=== PATIENT | male | born 1945 | race Caucasian/White ===

== ENCOUNTER → 2016-03-15 | Outpatient (CLI) | payer MEDICARE, OTHER ==
[~2016-03-15] MED LIST: ALBUTEROL SULFATE 0.083% NEB 2.5 MG/3 ML AMPUL NEB ONE
--- NOTE | 2016-03-17 09:24 | PULMONARY FUNCTION TEST ---
DATE OF SERVICE: 03/15/2016 THE VITAL CAPACITY IS MODERATELY DECREASED. THE EXPIRATORY FLOW RATES ARE SEVERELY DECREASED. THE FEV1/VC IS 60%, PREDICTED: 78% LUNG VOLUMES BY NITROGEN WASH OUT METHOD SHOW: TLC IS 73% OF PREDICTED FRC IS 90% OF PREDICTED RV IS 98% OF PREDICTED THE DLCO IS 17.2, 73% OF PREDICTED. THE RV/TLC RATIO IS 52% PREDICTED 41% AFTER BRONCHODILATOR, EXPIRATORY FLOW RATES SHOW NO SIGNIFICANT CHANGE. IMPRESSION: GOOD PATIENT EFFORT. SLIGHT RESTRICTIVE AND MODERATE OBSTRUCTIVE DEFECT. DIFFUSING CAPACITY IS SLIGHTLY DECREASED. CC: AUTUMN CARBONE MD > MIRAD
== END ==
LOC: RT 09:08
PROVIDERS: ATTEND Internal Medicine
DX: J44.9 Chronic obstructive pulmonary disease, unspecified (principal)
CPT/HCPCS: 94729; 94727; 94060; 94640; 94760; A9270

== ENCOUNTER → 2016-03-27 | Outpatient (CLI) | payer MEDICARE, OTHER ==
[2016-03-27 13:43] LABS: BLOOD UREA NITROGEN 14 mg/dL (7-20); CREATININE RESULT 0.94 mg/dL (0.52-1.25)
[2016-03-29 09:09] LABS: PROSTATE SPECIFIC ANTIGEN 0.6 ng/mL (0.0-4.0); PSA % FREE 11.7 % (.); PSA FREE 0.07 ng/mL
== END ==
LOC: OD 12:27
PROVIDERS: ATTEND Urology
DX: C61 Malignant neoplasm of prostate (principal)
CPT/HCPCS: 36415; 82565; 84153; 84154; 84520

== ENCOUNTER 2016-05-19 06:25 | Day surgery (SDC) | payer MEDICARE, OTHER ==
[2016-05-19] MEDS ORDERED: FENTANYL CITRATE INJ/PF 100 MCG/2 ML AMPUL ONE (07:18)
[2016-05-19] MEDS ORDERED: MIDAZOLAM 2 MG/2 ML INJ ONE (07:18)
[2016-05-19] MEDS ORDERED: LIDOCAINE 2% INJ (20 MG/ML) 20 ML MDV ONE (07:19)
[2016-05-19] MEDS ORDERED: ONDANSETRON HCL INJ/PF 4 MG/2 ML SDV ONE (07:19)
[2016-05-19] MEDS ORDERED: PROPOFOL INJ 200 MG/20 ML VIAL IV ONE (07:19)
[2016-05-19] MEDS ORDERED: BUPIVACAINE HCL 0.75% INJ/PF (7.5 MG/1 ML) 10 ML SDV ONE (07:28)
[2016-05-19] MEDS ORDERED: LIDOCAINE 2%/EPINEPHRINE INJ 20 ML VIAL ONE (07:28)
[2016-05-19] MEDS ORDERED: TETRACAINE HCL 0.5% OPH SOLN 2 ML ONE (07:29)
[2016-05-19] MEDS ORDERED: POVIDONE-IODINE 5% OPH PREP SOLN 30 ML ONE (07:35)
[2016-05-19] MEDS: THROMBIN (BOVINE) TOPICAL 5000 UNIT VIAL ONE ×2 (08:05)
[2016-05-19] MEDS: NEO/POLYMYX B SULF/DEXAMETH OPH OINTMENT 3.5 GM ONE ×2 (08:59)
--- NOTE | 2016-05-19 09:23 | [facility]IC[facility] DISCHARGE SUMMARY E ---
[facility] Discharge Summary NAME: SHERLYN MACIAS AGE: 71Y ADMITTED: 05/19/2016 DISCHARGED: 05/19/2016 DISCHARGE SUMMARY: This is a 71-year-old male who underwent bilateral upper lid blepharoplasty. DIAGNOSES: Dermatochalasis of both lids. The patient had excessive skin hanging down over vision, blocking his superior visual field. He is to use ice 15 minutes of every hour for the first 6 hours followed by 4 times a day. He is to use his Maxitrol ointment on his lids twice a day and he is to follow up with me for suture removal in 1 week and call sooner with any extra bleeding or swelling. The patient was on Plavix which he discontinued for 10 days prior to surgery, and he can continue to use that now. DICTATING PHYSICIAN: JUANA MORALES M.D. [id number] PHY#: [id number] ID: [id number] JOB#: [id number] ACCT: [id number] cc:JUANA MORALES M.D. >
--- NOTE | 2016-05-19 09:24 | [facility] OPERATIVE REPORT E ---
[facility] Operative Report NAME: SHERLYN MACIAS AGE: 71Y DATE OF SURGERY: 05/19/2016 ROOM: PREOPERATIVE DIAGNOSIS: Dermatochalasis of the bilateral upper lids. POSTOPERATIVE DIAGNOSIS: Dermatochalasis of the bilateral upper lids. PROCEDURE: Bilateral upper lid blepharoplasty, functional. SURGEON: JUANA MORALSE M.D. ANESTHESIA: 2% lidocaine with epinephrine as well as MAC. BLOOD LOSS: Less than 5 mL. COMPLICATIONS: None. DESCRIPTION OF OPERATIVE REPORT: After obtaining appropriate informed consent, the patient was brought back to the operating room where he was prepped and draped in sterile fashion. Following this the appropriate amount of eyelid skin was premarked with a marking pen following the lid crease and being careful not to remove excessive amount of skin. Following this the lids were injected with anesthesia and then pressure was applied. The skin was dissected using a #15 blade along the predetermined skin atkins. Bleph scissors and forceps were used to cut the skin along those lines. Following this hemostasis was achieved with bipolar and a strip of orbicularis was removed. Thrombin-soaked sponges were then applied and the same procedure was done to the opposite upper lid. Once hemostasis was achieved the 6-0 silk was used to do 3 simple interrupted sutures, reforming the lid crease, doing skin and orbicularis skin followed by a running 6-0 nylon. The lid was well opposed. Maxitrol ointment was applied to the upper eyelids and in the eyes. The patient was walked back to postop recovery. DICTATING PHYSICIAN: JUANA MORALES M.D. [id number] PHY#: [id number] ID: [id number] JOB#: [id number] ACCT: [id number] cc:JUANA MORALES M.D. >
== END 2016-05-19 09:53 | disposition home or self-care (01) ==
LOC: SC 06:25
PROVIDERS: ATTEND Internal Medicine
PROC: 080N0ZZ Alteration of Right Upper Eyelid, Open Approach (ICD-10-PCS; 2016-05-19)
PROC: 080P0ZZ Alteration of Left Upper Eyelid, Open Approach (ICD-10-PCS; principal; 2016-05-19 07:30)
DX: H02.831 Dermatochalasis of right upper eyelid (principal); H02.834 Dermatochalasis of left upper eyelid; H53.40 Unspecified visual field defects; I10 Essential (primary) hypertension; I25.2 Old myocardial infarction; K21.9 Gastro-esophageal reflux disease without esophagitis; E78.00 Pure hypercholesterolemia, unspecified; M10.9 Gout, unspecified; F17.210 Nicotine dependence, cigarettes, uncomplicated; Z79.899 Other long term (current) drug therapy; Z79.82 Long term (current) use of aspirin; Z79.02 Long term (current) use of antithrombotics/antiplatelets; Z85.46 Personal history of malignant neoplasm of prostate; Z95.1 Presence of aortocoronary bypass graft; Z79.51 Long term (current) use of inhaled steroids
CPT/HCPCS: 15822; J2250; J3490 ×6; J2405; J2704; 103; J3010

== ENCOUNTER → 2016-07-10 | Outpatient (CLI) | payer MEDICARE, OTHER ==
[2016-07-10 11:46] LABS: Direct HDL 57 mg/dL (>40); TRIGLYCERIDES 133 mg/dL (<150)
[2016-07-10 11:56] LABS: DIRECT LDL 96 mg/dL (<100)
== END ==
LOC: OD 10:16
PROVIDERS: ATTEND Radiology Radiation Oncology
DX: C61 Malignant neoplasm of prostate (principal); E78.5 Hyperlipidemia, unspecified
CPT/HCPCS: 36415; 80061; 84153

== ENCOUNTER → 2016-11-27 | Outpatient (CLI) | payer MEDICARE, OTHER ==
[2016-11-27 10:41] LABS: ABSOLUTE MONOCYTES (AUTO) 0.5 10^3/uL (0.1-1.4); ABSOLUTE NEUT (AUTO) 2.2 10^3/uL (1.7-8.2); BASOPHILS % (AUTO) 0.6 % (0-2); HEMATOCRIT 41.3 % (37.9-51.0); HEMOGLOBIN 14.3 g/dL (13.5-17.0); HGB HCT DIFFERENCE 1.6; LYMPHOCYTES % (AUTO) 26.6 % (13-45); MEAN CORPUSCULAR HEMOGLOBIN 34.7 pg (27.0-33.4); MEAN CORPUSCULAR HGB CONC 34.6 g/dL (32.0-36.0); MEAN CORPUSCULAR VOLUME 100 fl (80-97); RED BLOOD COUNT 4.12 10^6/uL (4.35-5.55); SEGMENTED NEUTROPHILS % (AUTO) 57.8 % (42-78); WHITE BLOOD COUNT 3.9 10^3/uL (4.0-10.5)
[2016-11-27 11:35] LABS: ALANINE AMINOTRANSFERASE 31 U/L (21-72); ALBUMIN 4.1 g/dL (3.5-5.0); ALKALINE PHOSPHATASE 91 U/L (38-126); ANION GAP 10 (5-19); ASPARTATE AMINO TRANSFERASE 29 U/L (17-59); BILIRUBIN,DIRECT 0.4 mg/dL (0.0-0.4); BILIRUBIN,TOTAL 0.5 mg/dL (0.2-1.3); BLOOD UREA NITROGEN 21 mg/dL (7-20); CALCIUM 9.4 mg/dL (8.4-10.2); CARBON DIOXIDE 27 mmol/L (22-30); CHLORIDE 105 mmol/L (98-107); CHOLESTEROL 185.78 mg/dL (0-200); CREATININE RESULT 0.97 mg/dL (0.52-1.25); Direct HDL 56 mg/dL (>40); GLUCOSE 98 mg/dL (75-110); POTASSIUM 4.2 mmol/L (3.6-5.0); SODIUM 141.6 mmol/L (137-145); TOTAL PROTEIN 6.8 g/dL (6.3-8.2); TRIGLYCERIDES 158 mg/dL (<150); URIC ACID 5.5 mg/dL (3.5-8.5)
[2016-11-27 11:40] LABS: VLDL CHOLESTEROL 31.6 mg/dL (10-31)
[2016-11-27 11:46] LABS: DIRECT LDL 96 mg/dL (<100)
== END ==
LOC: OD 08:55
PROVIDERS: ATTEND Family Medicine Geriatric Medicine
DX: E78.5 Hyperlipidemia, unspecified (principal); I25.10 Atherosclerotic heart disease of native coronary artery without angina pectoris; I10 Essential (primary) hypertension; Z79.899 Other long term (current) drug therapy
CPT/HCPCS: 36415; 80053; 80061; 84443; 84550; 85025

== ENCOUNTER → 2017-01-18 | Outpatient (CLI) | payer MEDICARE, OTHER | LOC: OD 13:05 | PROVIDERS: ATTEND Radiology Radiation Oncology | DX: C61 Malignant neoplasm of prostate (principal); R97.21 Rising PSA following treatment for malignant neoplasm of prostate | CPT/HCPCS: 36415; 84153 ==

== ENCOUNTER → 2017-02-20 | Outpatient (CLI) | payer MEDICARE, OTHER ==
[2017-02-20 08:24] LABS: HEMOGLOBIN 14.7 g/dL (13.5-17.0); MEAN CORPUSCULAR HEMOGLOBIN 33.9 pg (27.0-33.4); MEAN CORPUSCULAR HGB CONC 34.1 g/dL (32.0-36.0); MEAN CORPUSCULAR VOLUME 100 fl (80-97); PLATELET COUNT 128 10^3/uL (150-450); RED BLOOD COUNT 4.32 10^6/uL (4.35-5.55); RED CELL DISTRIBUTION WIDTH 13.8 % (11.5-14.0); WHITE BLOOD COUNT 4.9 10^3/uL (4.0-10.5)
[2017-02-20 08:43] LABS: ALANINE AMINOTRANSFERASE 40 U/L (21-72); ASPARTATE AMINO TRANSFERASE 24 U/L (17-59); CHOLESTEROL 177.63 mg/dL (0-200); TRIGLYCERIDES 162 mg/dL (<150)
[2017-02-20 08:54] LABS: DIRECT LDL 101 mg/dL (<100); VLDL CHOLESTEROL 32.4 mg/dL (10-31)
== END ==
LOC: OD 07:49
PROVIDERS: ATTEND Family Medicine Geriatric Medicine
DX: I10 Essential (primary) hypertension (principal); E78.5 Hyperlipidemia, unspecified; D75.89 Other specified diseases of blood and blood-forming organs; D72.819 Decreased white blood cell count, unspecified; I25.10 Atherosclerotic heart disease of native coronary artery without angina pectoris; K63.5 Polyp of colon; M10.9 Gout, unspecified; E83.42 Hypomagnesemia; Z79.899 Other long term (current) drug therapy
CPT/HCPCS: 36415; 80061; 84450; 84460; 85027

== ENCOUNTER → 2017-03-26 | Outpatient (CLI) | payer MEDICARE, OTHER | LOC: OD 11:17 | PROVIDERS: ATTEND Urology | DX: C61 Malignant neoplasm of prostate (principal) | CPT/HCPCS: 36415; 84153 ==

== ENCOUNTER → 2017-04-19 | Outpatient (CLI) | payer MEDICARE, OTHER ==
[2017-04-19 13:31] LABS: ANION GAP 7 (5-19); BLOOD UREA NITROGEN 15 mg/dL (7-20); CALCIUM 9.6 mg/dL (8.4-10.2); CARBON DIOXIDE 30 mmol/L (22-30); CHLORIDE 102 mmol/L (98-107); CHOLESTEROL 185.06 mg/dL (0-200); GLUCOSE 96 mg/dL (75-110); MAGNESIUM 2.1 mg/dL (1.6-2.3); POTASSIUM 4.8 mmol/L (3.6-5.0); SODIUM 139.2 mmol/L (137-145); TRIGLYCERIDES 179 mg/dL (<150); URIC ACID 4.4 mg/dL (3.5-8.5)
[2017-04-19 13:47] LABS: DIRECT LDL 111 mg/dL (<100)
[2017-04-19 14:58] LABS: VLDL CHOLESTEROL 35.8 mg/dL (10-31)
== END ==
LOC: OD 11:55
PROVIDERS: ATTEND Family Medicine Geriatric Medicine
DX: I10 Essential (primary) hypertension (principal); E78.5 Hyperlipidemia, unspecified; D75.89 Other specified diseases of blood and blood-forming organs; Z79.899 Other long term (current) drug therapy; D72.819 Decreased white blood cell count, unspecified; M10.9 Gout, unspecified
CPT/HCPCS: 36415; 80048; 80061; 82607; 82746; 83735; 84550

== ENCOUNTER → 2017-07-17 | Outpatient (CLI) | payer MEDICARE, OTHER | LOC: OD 11:06 | PROVIDERS: ATTEND Radiology Radiation Oncology | DX: C61 Malignant neoplasm of prostate (principal); R97.20 Elevated prostate specific antigen [PSA] | CPT/HCPCS: 36415; 84153 ==

== ENCOUNTER → 2017-07-27 | Outpatient (CLI) | payer MEDICARE, OTHER ==
--- NOTE | 2017-07-27 10:50 | RADIOLOGY REPORT (SQ) ---
EXAM DESCRIPTION: CT CHEST WITH COMPLETED DATE/TIME: 07/27/2017 10:36 am REASON FOR STUDY: PROSTATE CA C61 MALIGNANT NEOPLASM OF PROSTATE COMPARISON: Chest films 01/28/2012, 02/21/2013, 03/02/2016 CT abdomen pelvis 04/15/2014 TECHNIQUE: CT scan of the chest performed using helical scanning technique with dynamic intravenous contrast injection. Images reviewed with lung, soft tissue and bone windows. Reconstructed coronal and sagittal MPR images reviewed. All images stored on PACS. All CT scanners at this facility use dose modulation, iterative reconstruction, and/or weight based d osing when appropriate to reduce radiation dose to as low as reasonably achievable (ALARA). [facility]: Dose Right [facility]: CareDose [facility]: Dose Right [facility]: Teradose 4D [facility]: Screen Fix [place] CONTRAST TYPE AND DOSE: contrast/concentration: Isovue 370.00 mg/ml; Total Contrast Delivered: 80.0 ml; Total Saline Delivered: 55.0 ml RENAL FUNCTION: Creatinine 1.1 RADIATION DOSE: CT Rad equipment meets quality standard of care and radiation dose reduction techniq ues were employed. CTDIvol: 10.2 mGy. DLP: 407 mGy-cm. . LIMITATIONS: None. FINDINGS: LUNGS AND PLEURA: No opacities, nodules, masses. No pneumothorax. No effusions. HILAR AND MEDIASTINAL STRUCTURES: No identified masses or abnormal nodes. HEART AND VASCULAR STRUCTURES: No aneurysm or dissection. No central pulmonary emboli. No pericardi al effusion. Old sternotomy with CABG HARDWARE: None in the chest. UPPER ABDOMEN: No significant findings. Limited exam. THYROID AND OTHER SOFT TISSUES: Diffusely enlarged thyroid 1 cm left lobe thyroid cyst BONES: No significant finding. OTHER: No other significant finding. IMPRESSION: No CT evidence of metastatic prostate cancer over the chest TECHNICAL DOCUMENTATION: JOB ID: [id number] Quality ID # [id number]: Final reports with documentation of one or more dose reduction techniques (e.g., Au tomated exposure control, adjustment of the mA and/or kV according to patient size, use of iterative reconstruction technique) 2010 [employer]- All Rights Reserved Reading location - IP/workstation name: [email or web address]
== END ==
LOC: RAD 09:38
PROVIDERS: ATTEND Radiology Radiation Oncology
DX: C61 Malignant neoplasm of prostate (principal)
CPT/HCPCS: 71260; 82565

== ENCOUNTER → 2017-08-21 | Outpatient (CLI) | payer MEDICARE, OTHER ==
[2017-08-21 08:59] LABS: ALANINE AMINOTRANSFERASE 26 U/L (21-72); ASPARTATE AMINO TRANSFERASE 25 U/L (17-59); CHOLESTEROL 167.07 mg/dL (0-200); DIRECT LDL 87 mg/dL (<100); TRIGLYCERIDES 163 mg/dL (<150)
[2017-08-21 09:01] LABS: VLDL CHOLESTEROL 32.6 mg/dL (10-31)
== END ==
LOC: OD 07:10
PROVIDERS: ATTEND Family Medicine Geriatric Medicine
DX: E78.5 Hyperlipidemia, unspecified (principal); Z79.899 Other long term (current) drug therapy
CPT/HCPCS: 36415; 80061; 84450; 84460

== ENCOUNTER → 2017-10-01 | Outpatient (CLI) | payer MEDICARE, OTHER | LOC: OD 13:36 | PROVIDERS: ATTEND Urology | DX: C61 Malignant neoplasm of prostate (principal); R97.21 Rising PSA following treatment for malignant neoplasm of prostate | CPT/HCPCS: 36415; 84153 ==

== ENCOUNTER → 2017-12-24 | Outpatient (CLI) | payer MEDICARE, OTHER ==
[2017-12-24 11:49] LABS: ABSOLUTE EOSINOPHILS # (AUTO) 0.1 10^3/uL (0.0-0.6); ABSOLUTE LYMPHOCYTES (AUTO) 1.4 10^3/uL (0.5-4.7); ABSOLUTE MONOCYTES (AUTO) 0.5 10^3/uL (0.1-1.4); ABSOLUTE NEUT (AUTO) 2.5 10^3/uL (1.7-8.2); BASOPHILS % (AUTO) 0.3 % (0-2); EOSINOPHILS % (AUTO) 1.4 % (0-6); HEMATOCRIT 43.4 % (37.9-51.0); LYMPHOCYTES % (AUTO) 31.3 % (13-45); MEAN CORPUSCULAR HEMOGLOBIN 35.1 pg (27.0-33.4); MEAN CORPUSCULAR HGB CONC 34.7 g/dL (32.0-36.0); MEAN CORPUSCULAR VOLUME 101 fl (80-97); MONOCYTES % (AUTO) 11.7 % (3-13); PLATELET COUNT 120 10^3/uL (150-450); RED BLOOD COUNT 4.28 10^6/uL (4.35-5.55); SEGMENTED NEUTROPHILS % (AUTO) 55.3 % (42-78); TOTAL CELLS COUNTED % (AUTO) 100 %; WHITE BLOOD COUNT 4.5 10^3/uL (4.0-10.5)
[2017-12-24 14:50] LABS: ALANINE AMINOTRANSFERASE 25 U/L (21-72); ANION GAP 8 (5-19); BLOOD UREA NITROGEN 16 mg/dL (7-20); CALCIUM 9.5 mg/dL (8.4-10.2); CARBON DIOXIDE 31 mmol/L (22-30); CHLORIDE 102 mmol/L (98-107); CHOLESTEROL 188.43 mg/dL (0-200); GLUCOSE 103 mg/dL (75-110); POTASSIUM 5.5 mmol/L (3.6-5.0); SODIUM 140.6 mmol/L (137-145); TRIGLYCERIDES 168 mg/dL (<150)
[2017-12-24 15:00] LABS: DIRECT LDL 95 mg/dL (<100)
[2017-12-24 15:04] LABS: VLDL CHOLESTEROL 33.6 mg/dL (10-31)
== END ==
LOC: OD 10:50
PROVIDERS: ATTEND Family Medicine Geriatric Medicine
DX: E78.5 Hyperlipidemia, unspecified (principal); D75.89 Other specified diseases of blood and blood-forming organs; I10 Essential (primary) hypertension; E83.42 Hypomagnesemia
CPT/HCPCS: 36415; 80048; 80061; 83735; 84460; 85025

== ENCOUNTER → 2017-12-31 | Outpatient (CLI) | payer MEDICARE, OTHER | LOC: OD 13:16 | PROVIDERS: ATTEND Family Medicine Geriatric Medicine | DX: E87.5 Hyperkalemia (principal) | CPT/HCPCS: 36415; 84132 ==

== ENCOUNTER → 2018-02-13 | Outpatient (CLI) | payer MEDICARE, OTHER | LOC: OD 13:03 | PROVIDERS: ATTEND Radiology Radiation Oncology | DX: C61 Malignant neoplasm of prostate (principal) | CPT/HCPCS: 36415; 84153 ==

== ENCOUNTER → 2018-03-25 | Outpatient (CLI) | payer MEDICARE, OTHER ==
[2018-03-25 12:25] LABS: ABSOLUTE EOSINOPHILS # (AUTO) 0.1 10^3/uL (0.0-0.6); ABSOLUTE LYMPHOCYTES (AUTO) 1.2 10^3/uL (0.5-4.7); ABSOLUTE MONOCYTES (AUTO) 0.6 10^3/uL (0.1-1.4); ABSOLUTE NEUT (AUTO) 2.4 10^3/uL (1.7-8.2); BASOPHILS % (AUTO) 0.6 % (0-2); EOSINOPHILS % (AUTO) 1.7 % (0-6); HEMATOCRIT 43.5 % (37.9-51.0); MEAN CORPUSCULAR HEMOGLOBIN 34.1 pg (27.0-33.4); MEAN CORPUSCULAR HGB CONC 34.5 g/dL (32.0-36.0); MEAN CORPUSCULAR VOLUME 99 fl (80-97); PLATELET COUNT 159 10^3/uL (150-450); RED BLOOD COUNT 4.41 10^6/uL (4.35-5.55); RED CELL DISTRIBUTION WIDTH 13.5 % (11.5-14.0); SEGMENTED NEUTROPHILS % (AUTO) 56.7 % (42-78); TOTAL CELLS COUNTED % (AUTO) 100 %; WHITE BLOOD COUNT 4.2 10^3/uL (4.0-10.5)
[2018-03-25 12:38] LABS: ALANINE AMINOTRANSFERASE 35 U/L (21-72); CHOLESTEROL 184.62 mg/dL (0-200); TRIGLYCERIDES 136 mg/dL (<150)
[2018-03-25 12:49] LABS: DIRECT LDL 91 mg/dL (<100)
[2018-03-25 13:49] LABS: FOLATE > 20.00 ng/mL (>2.76)
== END ==
LOC: OD 11:04
PROVIDERS: ATTEND Family Medicine Geriatric Medicine
DX: E78.5 Hyperlipidemia, unspecified (principal); Z79.899 Other long term (current) drug therapy; E53.9 Vitamin B deficiency, unspecified
CPT/HCPCS: 36415; 80061; 82607; 82746; 84460; 85025

== ENCOUNTER → 2018-05-23 | Outpatient (CLI) | payer MEDICARE, OTHER | LOC: OD 12:04 | PROVIDERS: ATTEND Urology | DX: R97.21 Rising PSA following treatment for malignant neoplasm of prostate (principal) | CPT/HCPCS: 36415; 84153 ==

== ENCOUNTER → 2018-06-17 | Outpatient (CLI) | payer MEDICARE, OTHER ==
[2018-06-17 10:51] LABS: ANION GAP 5 (5-19); BLOOD UREA NITROGEN 19 mg/dL (7-20); CALCIUM 9.6 mg/dL (8.4-10.2); CARBON DIOXIDE 30 mmol/L (22-30); CHLORIDE 105 mmol/L (98-107); GLUCOSE 95 mg/dL (75-110); POTASSIUM 4.4 mmol/L (3.6-5.0)
== END ==
LOC: OD 09:12
PROVIDERS: ATTEND Family Medicine Geriatric Medicine
DX: Z79.899 Other long term (current) drug therapy (principal); I10 Essential (primary) hypertension
CPT/HCPCS: 36415; 80048

== ENCOUNTER → 2018-07-01 | Outpatient (CLI) | payer MEDICARE, OTHER ==
[2018-07-01 17:25] LABS: ABSOLUTE EOSINOPHILS # (AUTO) 0.1 10^3/uL (0.0-0.6); ABSOLUTE LYMPHOCYTES (AUTO) 1.6 10^3/uL (0.5-4.7); ABSOLUTE MONOCYTES (AUTO) 0.5 10^3/uL (0.1-1.4); ABSOLUTE NEUT (AUTO) 2.1 10^3/uL (1.7-8.2); BASOPHILS % (AUTO) 0.3 % (0-2); EOSINOPHILS % (AUTO) 3.2 % (0-6); HEMATOCRIT 40.1 % (37.9-51.0); HEMOGLOBIN 13.9 g/dL (13.5-17.0); LYMPHOCYTES % (AUTO) 37.1 % (13-45); MEAN CORPUSCULAR HEMOGLOBIN 34.5 pg (27.0-33.4); MEAN CORPUSCULAR HGB CONC 34.7 g/dL (32.0-36.0); MEAN CORPUSCULAR VOLUME 100 fl (80-97); MONOCYTES % (AUTO) 11.3 % (3-13); PLATELET COUNT 169 10^3/uL (150-450); RED BLOOD COUNT 4.02 10^6/uL (4.35-5.55); RED CELL DISTRIBUTION WIDTH 13.2 % (11.5-14.0); SEGMENTED NEUTROPHILS % (AUTO) 48.1 % (42-78); TOTAL CELLS COUNTED % (AUTO) 100 %; WHITE BLOOD COUNT 4.4 10^3/uL (4.0-10.5)
[2018-07-01 17:45] LABS: ALANINE AMINOTRANSFERASE 25 U/L (21-72); ANION GAP 9 (5-19); BLOOD UREA NITROGEN 18 mg/dL (7-20); CALCIUM 9.9 mg/dL (8.4-10.2); CARBON DIOXIDE 31 mmol/L (22-30); CHLORIDE 99 mmol/L (98-107); CHOLESTEROL 169.64 mg/dL (0-200); GLUCOSE 90 mg/dL (75-110); POTASSIUM 4.3 mmol/L (3.6-5.0); SODIUM 138.6 mmol/L (137-145); TRIGLYCERIDES 110 mg/dL (<150); URIC ACID 3.7 mg/dL (3.5-8.5)
[2018-07-01 17:56] LABS: DIRECT LDL 95 mg/dL (<100)
--- NOTE | 2018-07-02 08:18 | RADIOLOGY REPORT (SQ) ---
EXAM DESCRIPTION: SACRUM AND COCCYX COMPLETED DATE/TIME: 07/01/2018 5:19 pm REASON FOR STUDY: LBP E78.5 HYPERLIPIDEMIA, UNSPECIFIED I10 ESSENTIAL (PRIMARY) HYPERTENSION Z85.4 6 PERSONAL HISTORY OF MALIGNANT NEOPLASM OF PROSTATE COMPARISON: Lumbar spine films same date CT abdomen pelvis 04/15/2014 NUMBER OF VIEWS: Three views. TECHNIQUE: AP, lateral, and tilt views of the sacrum and coccyx. LIMITATIONS: None. FINDINGS: MINERALIZATION: Normal. BONES: No acute fracture or dislocation. No worrisome bone lesions. SOFT TISSUES: No soft tissue swelling. No foreign body. OTHER: No other significant finding. IMPRESSION: NEGATIVE STUDY OF THE SACRUM AND COCCYX. TECHNICAL DOCUMENTATION: JOB ID: [id number] [employer]- All Rights Reserved Reading location - IP/workstation name: [email or web address]
--- NOTE | 2018-07-02 08:27 | RADIOLOGY REPORT (SQ) ---
EXAM DESCRIPTION: T SPINE AP/LAT COMPLETED DATE/TIME: 07/01/2018 5:19 pm REASON FOR STUDY: PAIN IN THORACIC SPINE E78.5 HYPERLIPIDEMIA, UNSPECIFIED I10 ESSENTIAL (PRIMARY) HYPERTENSION Z85.46 PERSONAL HISTORY OF MALIGNANT NEOPLASM OF PROSTATE COMPARISON: None. NUMBER OF VIEWS: Two views. TECHNIQUE: AP and lateral radiographic images acquired of the thoracic spine. LIMITATIONS: None. FINDINGS: MINERALIZATION: Normal. ALIGNMENT: Normal. No scoliosis. VERTEBRAE: No fracture or bone lesion. Maintained height, normal segmentation. DISCS: Multilevel disc space narrowing with osteophytes. HARDWARE: None in the spine. MEDIASTINUM AND SOFT TISSUES: Normal heart size and aortic contour. No soft tissue abnormality. VISUALIZED LUNG SNIDER: Clear. OTHER: No other significant finding. IMPRESSION: SPONDYLOSIS WITHOUT BONE LESION OR FRACTURE. TECHNICAL DOCUMENTATION: JOB ID: [id number] [employer]- All Rights Reserved Reading location - IP/workstation name: [email or web address]
--- NOTE | 2018-07-02 08:29 | RADIOLOGY REPORT (SQ) ---
EXAM DESCRIPTION: RIBS RIGHT W/PA CHEST COMPLETED DATE/TIME: 07/01/2018 5:19 pm REASON FOR STUDY: PLEURODYNIA E78.5 HYPERLIPIDEMIA, UNSPECIFIED I10 ESSENTIAL (PRIMARY) HYPERTENSI ON Z85.46 PERSONAL HISTORY OF MALIGNANT NEOPLASM OF PROSTATE COMPARISON: None. TECHNIQUE: Frontal view of the chest and additional views of the right ribs acquired. NUMBER OF VIEWS: Five view. LIMITATIONS: None. FINDINGS: FRONTAL CXR: No pneumothorax. No pleural effusion. No atelectasis or infiltrates. RIBS: No displaced rib fractures. No lytic or blastic bony lesions. OTHER: No other significant finding. IMPRESSION: NO PNEUMOTHORAX. NO DISPLACED RIB FRACTURES. COMMENT: SITE OF TRAUMA/COMPLAINT MARKED/STAMP COMPLETED: YES. TECHNICAL DOCUMENTATION: JOB ID: [id number] [employer]- All Rights Reserved Reading location - IP/workstation name: [email or web address]
--- NOTE | 2018-07-02 08:30 | RADIOLOGY REPORT (SQ) ---
EXAM DESCRIPTION: LUMBAR SPINE COMPLETE COMPLETED DATE/TIME: 07/01/2018 5:19 pm REASON FOR STUDY: LBP E78.5 HYPERLIPIDEMIA, UNSPECIFIED I10 ESSENTIAL (PRIMARY) HYPERTENSION Z85.4 6 PERSONAL HISTORY OF MALIGNANT NEOPLASM OF PROSTATE COMPARISON: None. NUMBER OF VIEWS: Five views including obliques. TECHNIQUE: AP, lateral, oblique, and sacral radiographic images acquired of the lumbar spine. LIMITATIONS: None. FINDINGS: MINERALIZATION: Normal. SEGMENTATION: Normal. No transitional anatomy. ALIGNMENT: Normal. VERTEBRAE: Maintained height. No fracture or worrisome bone lesion. DISCS: Multilevel disc space narrowing with osteophytes. POSTERIOR ELEMENTS: Pedicles and facets are intact. No pars defect or posterior arch defects. Facet arthropathy is present. HARDWARE: None in the spine. PARASPINAL SOFT TISSUES: Normal. PELVIS: Intact as visualized. No fractures or worrisome bone lesions. SI joints intact. OTHER: No other significant finding. IMPRESSION: SPONDYLOSIS WITHOUT BONE LESION OR FRACTURE. TECHNICAL DOCUMENTATION: JOB ID: [id number] [employer]- All Rights Reserved Reading location - IP/workstation name: [email or web address]
== END ==
LOC: OD 16:09
PROVIDERS: ATTEND Family Medicine Geriatric Medicine
DX: E78.5 Hyperlipidemia, unspecified (principal); I12.9 Hypertensive chronic kidney disease with stage 1 through stage 4 chronic kidney disease, or unspecified chronic kidney disease; N18.3 Chronic kidney disease, stage 3 (moderate); E83.42 Hypomagnesemia; M47.896 Other spondylosis, lumbar region; M47.894 Other spondylosis, thoracic region; M54.6 Pain in thoracic spine; M54.5 Low back pain; R07.81 Pleurodynia; M10.9 Gout, unspecified; Z79.899 Other long term (current) drug therapy; Z85.46 Personal history of malignant neoplasm of prostate
CPT/HCPCS: 36415; 72070; 72110; 72220; 80048; 80061; 82306; 83735; 84153; 84460; 84550; 85025

== ENCOUNTER → 2018-07-24 | Outpatient (CLI) | payer MEDICARE, OTHER ==
--- NOTE | 2018-07-24 13:58 | RADIOLOGY REPORT (SQ) ---
EXAM DESCRIPTION: CHEST PA/LATERAL COMPLETED DATE/TIME: 07/24/2018 1:04 pm REASON FOR STUDY: CHRONIC OBSTRUCTIVE PULMONARY DISEASE W (ACUTE) EXACERBATION COMPARISON: 07/09/2018 EXAM PARAMETERS: NUMBER OF VIEWS: two views TECHNIQUE: Digital Frontal and Lateral radiographic views of the chest acquired. RADIATION DOSE: NA LIMITATIONS: none FINDINGS: LUNGS AND PLEURA: No opacities, masses or pneumothorax. No pleural effusion. MEDIASTINUM AND HILAR STRUCTURES: No masses or contour abnormalities. HEART AND VASCULAR STRUCTURES: Evidence of prior median sternotomy and CABG. BONES: No acute findings. HARDWARE: CABG hardware. OTHER: No other significant finding. IMPRESSION: No evidence of acute cardiopulmonary process. TECHNICAL DOCUMENTATION: JOB ID: [id number] [employer]- All Rights Reserved Reading location - IP/workstation name: [email or web address]
== END ==
LOC: OD 12:54
PROVIDERS: ATTEND Family Medicine Geriatric Medicine
DX: J44.1 Chronic obstructive pulmonary disease with (acute) exacerbation (principal)
CPT/HCPCS: 71046

== ENCOUNTER → 2018-08-09 | Outpatient (CLI) | payer MEDICARE, OTHER ==
[2018-08-09 10:59] LABS: FOLATE > 20.00 ng/mL (>2.76)
== END ==
LOC: OD 08:36
PROVIDERS: ATTEND Family Medicine Geriatric Medicine
DX: E55.9 Vitamin D deficiency, unspecified (principal); Z79.899 Other long term (current) drug therapy; C67.3 Malignant neoplasm of anterior wall of bladder
CPT/HCPCS: 36415; 82306; 82607; 82746; 84153

== ENCOUNTER 2018-08-12 14:40 | Emergency (ER) | payer MEDICARE, OTHER ==
[2018-08-12] MEDS ORDERED: ASPIRIN 81 MG TABLET, CHEWABLE PO ONE (15:09)
[2018-08-12] MEDS ORDERED: IPRATROPIUM/ALBUTEROL 0.5-2.5 MG/3 ML AMPUL NEB ONE (15:10)
[2018-08-12 15:27] LABS: ABSOLUTE EOSINOPHILS # (AUTO) 0.2 10^3/uL (0.0-0.6); ABSOLUTE LYMPHOCYTES (AUTO) 1.6 10^3/uL (0.5-4.7); ABSOLUTE MONOCYTES (AUTO) 0.6 10^3/uL (0.1-1.4); ABSOLUTE NEUT (AUTO) 2.9 10^3/uL (1.7-8.2); BASOPHILS % (AUTO) 0.7 % (0-2); EOSINOPHILS % (AUTO) 4.4 % (0-6); HEMATOCRIT 43.4 % (37.9-51.0); HEMOGLOBIN 14.8 g/dL (13.5-17.0); LYMPHOCYTES % (AUTO) 30.1 % (13-45); MEAN CORPUSCULAR HEMOGLOBIN 34.3 pg (27.0-33.4); MEAN CORPUSCULAR HGB CONC 34.2 g/dL (32.0-36.0); MEAN CORPUSCULAR VOLUME 100 fl (80-97); MONOCYTES % (AUTO) 11.6 % (3-13); PLATELET COUNT 166 10^3/uL (150-450); RED BLOOD COUNT 4.33 10^6/uL (4.35-5.55); RED CELL DISTRIBUTION WIDTH 13.9 % (11.5-14.0); SEGMENTED NEUTROPHILS % (AUTO) 53.2 % (42-78); TOTAL CELLS COUNTED % (AUTO) 100 %; WHITE BLOOD COUNT 5.5 10^3/uL (4.0-10.5)
--- NOTE | 2018-08-12 15:33 | RADIOLOGY REPORT (SQ) ---
EXAM DESCRIPTION: CHEST SINGLE VIEW COMPLETED DATE/TIME: 08/12/2018 3:24 pm REASON FOR STUDY: new onset a-fib COMPARISON: 07/24/2018 EXAM PARAMETERS: NUMBER OF VIEWS: One view. TECHNIQUE: Single frontal radiographic view of the chest acquired. RADIATION DOSE: NA LIMITATIONS: None. FINDINGS: LUNGS AND PLEURA: No opacities, masses or pneumothorax. No pleural effusion. MEDIASTINUM AND HILAR STRUCTURES: No masses. Contour normal. HEART AND VASCULAR STRUCTURES: Heart normal in size. Normal vasculature. BONES: No acute findings. HARDWARE: Sternotomy wires. Graft markers. OTHER: No other significant finding. IMPRESSION: NO ACUTE RADIOGRAPHIC FINDING IN THE CHEST. TECHNICAL DOCUMENTATION: JOB ID: [id number] [employer]- All Rights Reserved Reading location - IP/workstation name: [email or web address]
[2018-08-12 15:45] LABS: ALANINE AMINOTRANSFERASE 34 U/L (21-72); ALBUMIN 4.3 g/dL (3.5-5.0); ALKALINE PHOSPHATASE 61 U/L (38-126); ANION GAP 9 (5-19); ASPARTATE AMINO TRANSFERASE 31 U/L (17-59); BILIRUBIN,DIRECT 0.3 mg/dL (0.0-0.4); BILIRUBIN,TOTAL 0.4 mg/dL (0.2-1.3); BLOOD UREA NITROGEN 19 mg/dL (7-20); CARBON DIOXIDE 30 mmol/L (22-30); CHLORIDE 101 mmol/L (98-107); CREATINE KINASE 39 U/L (55-170); GLUCOSE 78 mg/dL (75-110); SODIUM 140.4 mmol/L (137-145); TOTAL PROTEIN 7.1 g/dL (6.3-8.2)
[2018-08-12 16:12] LABS: CREATINE KINASE MB 1.55 ng/mL (<4.55); TROPONIN I 0.026 ng/mL
--- NOTE | 2018-08-12 16:59 | ER Document Report ---
ED General - General Chief Complaint: afib Stated Complaint: ABNORMAL LABS Time Seen by Provider: 08/12/18 15:00 Primary Care Provider: ANDREA HARRISON MD [Primary Care Provider] - Follow up as needed Mode of Arrival: Medic Information source: Patient, Relative, Emergency Med Personnel, Dr. Denise, [facility] Records Notes: 73-year-old male with hypertension, hyperlipidemia, COPD, CAD presents via EMS from his primary care physician's office Dr. Harrison with concern for new onset atrial fibrillation. Patient states that yesterday evening he experienced chest tightness that lasted approximately 5 minutes. He reports an associated productive cough that has been ongoing for several weeks. Currently is chest pain-free. States he saw his primary care physician today and the EKG was obtained which showed atrial fibrillation. No documented previous history of this. Patient is currently on metoprolol, aspirin. Patient sees Dr. Olivas world history teacher at [facility]. Last seen in April 2018 with an upcoming appointment in October. TRAVEL OUTSIDE OF THE [place] IN LAST 30 DAYS: No - HPI Onset: Yesterday Onset/Duration: Sudden, Gone Quality of pain: Other - Chest tightness Severity: Mild Associated symptoms: Chest pain - Chest tightness resolved after 5 minutes yesterday, Productive cough - Chronic, Shortness of breath - Chronic. denies: Body/muscle aches, Fever, Headache, Leg swelling, Nausea, Vomiting, Sweating, Weakness Exacerbated by: Denies Relieved by: Denies Similar symptoms previously: Yes Recently seen / treated by doctor: Yes - Related Data Allergies/Adverse Reactions: No Known Allergies Allergy (Verified 05/19/16 06:59) Past Medical History - General Information source: Patient, Relative, Emergency Med Personnel, [facility] Records - Social History Smoking Status: Former Smoker Frequency of alcohol use: None Drug Abuse: None Lives with: Spouse/Significant other Family History: Reviewed & Not Pertinent - Past Medical History Cardiac Medical History: Reports: Hx Coronary Artery Disease, Hx Heart Attack - 1997 AND minor DC in 2012, quad bypass, on plavix, Hx Hypertension Pulmonary Medical History: Reports: Hx Asthma, Hx COPD - stopped smoking several months ago, smoked for over 50 years Denies: Hx Bronchitis, Hx Pneumonia Neurological Medical History: Denies: Hx Cerebrovascular Accident, Hx Seizures Renal/ Medical History: Denies: Hx Kidney Stones GI Medical History: Reports: Hx Gastroesophageal Reflux Disease, Hx Ulcer - in past. Denies: Hx Hepatitis, Hx Hiatal Hernia Musculoskeletal Medical History: Reports Hx Arthritis Infectious Medical History: Denies: Hx Hepatitis Past Surgical History: Reports: Hx Cardiac Catheterization - 01/2012, Hx Cardiac Surgery - CABG X4 in 1997, Hx Coronary Artery Bypass Graft, Hx Open Heart Surgery - 1997 NO PX NOW, CATH NO DEFINITIVE RESULTS, Hx Tonsillectomy. Denies: Hx Pacemaker - Immunizations Hx Diphtheria, Pertussis, Tetanus Vaccination: No Hx Pneumococcal Vaccination: 11/11/15 Review of Systems - Review of Systems Notes: REVIEW OF SYSTEMS: CONSTITUTIONAL : Denies fever, chills, or sweats. Denies recent illness. Denies weight loss, recent hospitalizations. EENT: Denies visual changes, eye pain. Denies sore throat, oral lesions, difficulty swallowing. CARDIOVASCULAR: Denies chest pain. Denies palpitations. Denies lower extremity edema. RESPIRATORY: + cough. + shortness of breath, wheezing. GASTROINTESTINAL: Denies abdominal pain or distention. Denies nausea, vomiting, or diarrhea. Denies blood in vomitus, stools, or per rectum. Denies black, tarry stools. Denies constipation. GENITOURINARY: Denies difficulty urinating, painful urination, frequency, blood in urine, testicular pain or penile discharge. MUSCULOSKELETAL: Denies back or neck pain or stiffness. Denies joint pain or swelling. SKIN: Denies rash, lesions or sores. HEMATOLOGIC : Denies easy bruising or bleeding. LYMPHATIC: Denies swollen glands. NEUROLOGICAL: Denies confusion or altered mental status. Denies loss of consciousness. Denies dizziness or lightheadedness. Denies headache. Denies weakness or paralysis. Denies problems difficulty with ambulation, slurred speech. Denies sensory loss, numbness, or tingling. Denies seizures. PSYCHIATRIC: Denies anxiety or stress. Denies depression, suicidal ideation, or Physical Exam - Vital signs Vitals: Resp Pulse Ox 16 98 08/12/18 15:07 08/12/18 15:07 - Notes Notes: PHYSICAL EXAMINATION: GENERAL: Well-appearing, well-nourished and in no acute distress. HEAD: Atraumatic, normocephalic. EYES: Pupils equal round and reactive to light, extraocular movements intact, sclera anicteric, conjunctiva are normal. ENT: Nares patent, oropharynx clear without exudates. Moist mucous membranes. NECK: Normal range of motion, supple without lymphadenopathy LUNGS: Bilateral expiratory wheezing. No increased work of breathing. No hypoxia. HEART: Irregular rhythm with regular rate. ABDOMEN: Soft, nontender, nondistended abdomen. No guarding, no rebound. No masses appreciated. Musculoskeletal: Normal range of motion, no pitting or edema. No cyanosis. NEUROLOGICAL: Cranial nerves grossly intact. Normal speech, normal gait. Normal sensory, motor exams PSYCH: Normal mood, normal affect. SKIN: Warm, Dry, normal turgor, no rashes or lesions noted. Course - Re-evaluation Re-evalutation: 08/12/18 16:56 Laboratory 08/12/18 08/12/18 08/12/18 14:30 14:30 14:30 WBC 5.5 RBC 4.33 L Hgb 14.8 Hct 43.4 MCV 100 H MCH 34.3 H MCHC 34.2 RDW 13.9 Plt Count 166 Seg Neutrophils % 53.2 Lymphocytes % 30.1 Monocytes % 11.6 Eosinophils % 4.4 Basophils % 0.7 Absolute Neutrophils 2.9 Absolute Lymphocytes 1.6 Absolute Monocytes 0.6 Absolute Eosinophils 0.2 Absolute Basophils 0.0 Sodium 140.4 Potassium 5.0 Chloride 101 Carbon Dioxide 30 Anion Gap 9 BUN 19 Creatinine 1.58 H Est GFR ( Amer) 52 L Est GFR (Non-Af Amer) 43 L Glucose 78 Calcium 10.0 Magnesium 2.1 Total Bilirubin 0.4 Direct Bilirubin 0.3 Neonat Total Bilirubin Not Reportable Neonat Direct Bilirubin Not Reportable Neonat Indirect Bili Not Reportable AST 31 ALT 34 Alkaline Phosphatase 61 Creatine Kinase 39 L CK-MB (CK-2) 1.55 Troponin I 0.026 Total Protein 7.1 Albumin 4.3 Chest X-Ray 08/12/18 15:09 IMPRESSION: NO ACUTE RADIOGRAPHIC FINDING IN THE CHEST. Temp Pulse Resp BP Pulse Ox 16 96 08/12/18 15:07 08/12/18 15:09 73-year-old male with hypertension, hyperlipidemia, COPD, CAD presents via EMS from his primary care physician's office Dr. Harrison with concern for new onset atrial fibrillation. Patient states that yesterday evening he experienced chest tightness that lasted approximately 5 minutes. He reports an associated productive cough that has been ongoing for several weeks. Currently is chest pain-free. States he saw his primary care physician today and the EKG was obtained which showed atrial fibrillation. No documented previous history of this. Vital signs reviewed upon arrival and patient normotensive, not hypoxic and not tachycardic. Patient does not appear toxic or dehydrated. He is in no acute distress. Exam is significant for mild wheezing for which the patient has been on prednisone and Symbicort for. EKG was obtained which did show atrial fibrillation at a rate of 87. CBC is without leukocytosis or anemia. CMP shows no electrolyte abnormalities but does show mild LIN with a creatinine of 1.58. Cardiac enzymes within normal limits. [facility] contacted for consult with Dr. Ai Brown covering Dr. Olivas of cardiology. 08/12/18 17:[address]Sachini brown covering for Dr. Olivas. Reviewed patient's labs, new finding of atrial fibrillation. We did discuss starting a blood thinning medication but reviewed the patient's history of recurrent nosebleeds on Plavix. At this point no anticoagulation is recommended. Recommend patient be seen in the next 24 hours. Discussed this with the patient and his were comfortable with discharge home. They state that Dr. Olivas is usually very easy to get into. Patient has remained chest pain-free and is without shortness of breath, palpitations. Current heart rates is 88. Blood pressure 126/72. 08/12/18 17:36 - Vital Signs Vital signs: Temp Pulse Resp BP Pulse Ox 21 H 128/72 H 97 08/12/18 17:02 08/12/18 17:02 08/12/18 17:02 - Laboratory Result Diagrams: 08/12/18 14:30 08/12/18 14:30 Laboratory results interpreted by me: 08/12/18 08/12/18 14:30 14:30 RBC 4.33 L MCV 100 H MCH 34.3 H Creatinine 1.58 H Est GFR ( Amer) 52 L Est GFR (Non-Af Amer) 43 L Creatine Kinase 39 L - Diagnostic Test Radiology reviewed: Image reviewed, Reports reviewed - EKG Interpretation by Me Rate: Normal Rhythm: A.Fib When compared to previous EKG there are: Changes noted Discharge - Discharge Clinical Impression: New onset atrial fibrillation COPD (chronic obstructive pulmonary disease) Qualifiers: COPD type: unspecified COPD Qualified Code(s): J44.9 - Chronic obstructive pulmonary disease, unspecified Condition: Good Disposition: HOME, SELF-CARE Instructions: Atrial Fibrillation ([facility]), Chronic Obstructive Lung Disease ([facility]) Additional Instructions: Please follow-up with Dr. Olivas your world history teacher in the next 24 to 48 hours. Please return with any palpitations, shortness of breath or chest pain. Referrals: ANDREA HARRISON MD [Primary Care Provider] - Follow up as needed
[2018-08-12 17:30] VITALS: BP 128/72
--- NOTE | 2018-08-12 19:30 | EKG REPORT ---
SEVERITY:- DEFECTIVE ECG - ATRIAL FLUTTER, A-RATE 238 ARM LEADS REVERSED, REPEAT EKB NEEDED. : Confirmed by: Ankur House MD 12-Aug-2018 19:30:09
== END 2018-08-12 17:30 | disposition home or self-care (01) ==
LOC: ER 14:40
DX: I48.91 Unspecified atrial fibrillation (principal); J44.9 Chronic obstructive pulmonary disease, unspecified; Z79.52 Long term (current) use of systemic steroids; Z79.51 Long term (current) use of inhaled steroids; R07.89 Other chest pain; N17.9 Acute kidney failure, unspecified; I25.10 Atherosclerotic heart disease of native coronary artery without angina pectoris; I10 Essential (primary) hypertension; R05 Cough; R06.02 Shortness of breath; I25.2 Old myocardial infarction; Z79.82 Long term (current) use of aspirin; Z79.899 Other long term (current) drug therapy; Z87.891 Personal history of nicotine dependence; Z95.1 Presence of aortocoronary bypass graft
CPT/HCPCS: 93005; 94640; 99284; 36415; 82553; 82550; 83735; 85025; 80053; 84484; 71045; 93010; A9270 ×2; J7620

== ENCOUNTER 2018-10-04 02:05 | Inpatient (IN) | payer MEDICARE ==
[2018-10-04] MEDS ORDERED: FUROSEMIDE INJ/PF 40 MG/4 ML SDV IV ONE (02:11)
--- NOTE | 2018-10-04 02:15 | ER Document Report ---
ED General - General Stated Complaint: SHORTNESS OF BREATH Time Seen by Provider: 10/04/18 02:10 Primary Care Provider: ANDREA DUKE MD [Primary Care Provider] - Follow up as needed Notes: Patient is a pleasant 33-year-old male who presents with complaint of difficulty breathing. Is also feel like that is constant. This happened over the last 24 hours. He has also gained approximately 6 pounds in the last 24 hours. He is also noticed edema in his lower extremities. Says never had this happen before. Denies any chest pain. He does have a history of coronary bypass that was performed 20 years ago. Denies any fevers. No vomiting. No diarrhea. No other complaints at this time. TRAVEL OUTSIDE OF THE [place] IN LAST 30 DAYS: No - Related Data Allergies/Adverse Reactions: No Known Allergies Allergy (Verified 05/19/16 06:59) Past Medical History - Social History Smoking Status: Never Smoker Frequency of alcohol use: None Drug Abuse: None Family History: Reviewed & Not Pertinent - Past Medical History Cardiac Medical History: Reports: Hx Coronary Artery Disease, Hx Heart Attack - 1997 AND minor [place] in 2012, quad bypass, on plavix, Hx Hypertension Pulmonary Medical History: Reports: Hx Asthma, Hx COPD - stopped smoking several months ago, smoked for over 50 years Denies: Hx Bronchitis, Hx Pneumonia Neurological Medical History: Denies: Hx Cerebrovascular Accident, Hx Seizures Renal/ Medical History: Denies: Hx Kidney Stones GI Medical History: Reports: Hx Gastroesophageal Reflux Disease, Hx Ulcer - in past. Denies: Hx Hepatitis, Hx Hiatal Hernia Musculoskeletal Medical History: Reports Hx Arthritis Infectious Medical History: Denies: Hx Hepatitis Past Surgical History: Reports: Hx Cardiac Catheterization - 01/2012, Hx Cardiac Surgery - CABG X4 in 1997, Hx Coronary Artery Bypass Graft, Hx Open Heart Surgery - 1997 NO PX NOW, CATH NO DEFINITIVE RESULTS, Hx Tonsillectomy. Denies: Hx Pacemaker - Immunizations Hx Diphtheria, Pertussis, Tetanus Vaccination: No Hx Pneumococcal Vaccination: 11/11/15 Review of Systems - Review of Systems Notes: My Normal Review Basic REVIEW OF SYSTEMS: CONSTITUTIONAL : Denies fever, chills, or sweats. Denies recent illness. EENT: Denies eye, ear, throat, or mouth pain or symptoms. Denies nasal or sinus congestion. CARDIOVASCULAR: Denies chest pain. RESPIRATORY: Dyspnea GASTROINTESTINAL: Mild abdominal distention GENITOURINARY: Denies difficulty urinating, painful urination, burning, frequency, or blood in urine. MUSCULOSKELETAL: Extremity edema SKIN: Denies rash or skin lesions. NEUROLOGICAL: Denies altered mental status or loss of consciousness. Denies headache. Denies weakness or paralysis or loss of use of either side. Denies problems with gait or speech. Denies sensory or motor loss. ALL OTHER SYSTEMS REVIEWED AND NEGATIVE. Physical Exam - Vital signs Vitals: Resp 23 H 10/04/18 02:09 - Notes Notes: General Appearance: Well nourished, alert, cooperative, moderate acute distress, no obvious discomfort. Vitals: reviewed, See vital signs table. Head: no swelling or tenderness to the head Eyes: PERRL, EOMI, Conjuctiva clear Mouth: No decreasd moisture Throat: No tonsillar inflammation, No airway obstruction, No lymphadenopathy Neck: Supple, no neck tenderness, No thyromegaly Lungs: No wheezing, Fuhs rales, No rhonci, No accessory muscle use, good air exchange bilaterally. Heart: Normal rate, Regular rythm, No murmur, no rub Abdomen: Normal BS, soft, No rigidity, he does not have significant pain to palpation of the abdomen but he does have some distention which I think is actually related to his edema. Extremities: strength 5/5 in all extremities, good pulses in all extremities, no swelling or tenderness in the extremities, 2+ bilateral lower extremity edema. Skin: warm, dry, appropriate color, no rash Neuro: speech clear, oriented x 3, normal affect, responds appropriately to questions. Course - Re-evaluation Re-evalutation: 10/04/18 03:12 Clinically patient's exam is consistent with that of fluid overload with the significant amount of pitting edema his lower extremities, edema into his abdomen, and rales on lung auscultation. Chest x-ray is not too impressive despite how much rales he has an lung auscultation. His respiratory status has significantly improved after being placed on BiPAP. I have given dose of Lasix. He does have some renal insufficiency which is slightly worse than his most recent labs in August. Currently does not have any chest pain. His EKG shows A. fib which is chronic for him. Looking through his meds he is on Eliquis and metoprolol for his A. fib. I did speak with the hospitalist, Dr. Luna, who agrees to evaluate the patient for admission. Dictation of this chart was performed using voice recognition software; therefore, there may be some unintended grammatical errors. - Vital Signs Vital signs: Temp Pulse Resp BP Pulse Ox 98.5 F 17 151/87 H 99 10/04/18 02:17 10/04/18 02:25 10/04/18 02:12 10/04/18 02:25 - Laboratory Result Diagrams: 10/04/18 02:18 10/04/18 02:18 Laboratory results interpreted by me: 10/04/18 10/04/18 02:18 02:18 RBC 3.40 L Hgb 11.7 L Hct 34.3 L MCV 101 H MCH 34.5 H RDW 14.7 H Plt Count 131 L BUN 29 H Creatinine 1.83 H Est GFR ( Amer) 44 L Est GFR (Non-Af Amer) 37 L Glucose 113 H - EKG Interpretation by Me Additional EKG results interpreted by me: 10/04/18 02:26 EKG is reviewed and interpreted by me. EKG shows atrial fibrillation with a rate of [address] segment elevation or depression. QRS duration, QTc intervals are within normal range. Old EKG for comparison is from August 12, 2018. 10/04/18 02:27 Discharge - Discharge Clinical Impression: Fluid overload Qualifiers: Hypervolemia type: unspecified Qualified Code(s): E87.70 - Fluid overload, unspecified Dyspnea Qualifiers: Dyspnea type: unspecified Qualified Code(s): R06.00 - Dyspnea, unspecified Condition: Stable Disposition: ADMITTED INPATIENT Admitting Provider: Jeremy (Hospitalist) Unit Admitted: Telemetry Referrals: ANDREA DUKE MD [Primary Care Provider] - Follow up as needed
[2018-10-04 02:34] LABS: ABSOLUTE EOSINOPHILS # (AUTO) 0.1 10^3/uL (0.0-0.6); ABSOLUTE LYMPHOCYTES (AUTO) 0.9 10^3/uL (0.5-4.7); ABSOLUTE MONOCYTES (AUTO) 0.7 10^3/uL (0.1-1.4); ABSOLUTE NEUT (AUTO) 4.5 10^3/uL (1.7-8.2); BASOPHILS % (AUTO) 0.4 % (0-2); EOSINOPHILS % (AUTO) 1.2 % (0-6); HEMATOCRIT 34.3 % (37.9-51.0); HEMOGLOBIN 11.7 g/dL (13.5-17.0); LYMPHOCYTES % (AUTO) 14.2 % (13-45); MEAN CORPUSCULAR HEMOGLOBIN 34.5 pg (27.0-33.4); MEAN CORPUSCULAR HGB CONC 34.2 g/dL (32.0-36.0); MEAN CORPUSCULAR VOLUME 101 fl (80-97); MONOCYTES % (AUTO) 10.8 % (3-13); PLATELET COUNT 131 10^3/uL (150-450); RED CELL DISTRIBUTION WIDTH 14.7 % (11.5-14.0); SEGMENTED NEUTROPHILS % (AUTO) 73.4 % (42-78); TOTAL CELLS COUNTED % (AUTO) 100 %; WHITE BLOOD COUNT 6.1 10^3/uL (4.0-10.5)
[2018-10-04 02:49] LABS: ALANINE AMINOTRANSFERASE 32 U/L (21-72); ALBUMIN 3.9 g/dL (3.5-5.0); ALKALINE PHOSPHATASE 69 U/L (38-126); ANION GAP 8 (5-19); ASPARTATE AMINO TRANSFERASE 37 U/L (17-59); BILIRUBIN,DIRECT 0.3 mg/dL (0.0-0.4); BILIRUBIN,TOTAL 0.5 mg/dL (0.2-1.3); BLOOD UREA NITROGEN 29 mg/dL (7-20); CALCIUM 9.2 mg/dL (8.4-10.2); CARBON DIOXIDE 30 mmol/L (22-30); CHLORIDE 104 mmol/L (98-107); GLUCOSE 113 mg/dL (75-110); POTASSIUM 4.2 mmol/L (3.6-5.0); TOTAL PROTEIN 6.5 g/dL (6.3-8.2)
[2018-10-04 03:00] LABS: TROPONIN I 0.023 ng/mL
--- NOTE | 2018-10-04 03:07 | RADIOLOGY REPORT (SQ) ---
EXAM DESCRIPTION: X-ray single view chest. CLINICAL HISTORY: 73 years Male, dyspnea COMPARISON: 08/12/2018 TECHNIQUE: Single portable x-ray view of the chest performed on 10/04/2018 at 2:37 AM FINDINGS: The lungs are hyperinflated. There is new airspace disease in the inferomedial right lung base concerning for a pneumonic infiltrate. There is no evidence of a pneumothorax. The cardiac silhouette is normal in size and configuration. There are remote postsurgical changes of the mediastinum. The mediastinal contours are normal. No acute osseous abnormality is identified. No focal soft tissue abnormalities are seen. Lines and tubes: None. IMPRESSION: 1. New airspace disease in the inferomedial right lung base concerning for a pneumonic infiltrate. 2. Remote median sternotomy.
[2018-10-04] MEDS ORDERED: LIDOCAINE 2% URO-JET 5 ML KIT MM ONE (03:22)
[2018-10-04] MEDS ORDERED: MAG HYDROX/AL HYDROX/SIMETH SUSP 30 ML UDCUP PO PRN (03:45)
[2018-10-04] MEDS ORDERED: MAGNESIUM HYDROXIDE SUSP 30 ML UDCUP PO PRN (03:45)
[2018-10-04] MEDS ORDERED: ONDANSETRON HCL INJ/PF 4 MG/2 ML SDV IV PRN (03:45)
[2018-10-04] MEDS ORDERED: MORPHINE SULFATE 10 MG/ML INJ IV PRN (03:56)
[2018-10-04] MEDS ORDERED: NICOTINE 21 MG/24 HR PATCH.TD24 TD PRN (03:56)
[2018-10-04] MEDS ORDERED: HYDRALAZINE HCL INJ/PF 20 MG/1 ML SDV IV PRN (03:56)
[2018-10-04] MEDS ORDERED: NITROGLYCERIN 0.4 MG/TAB 25 TAB/BOTTLE SL PRN (04:05)
--- NOTE | 2018-10-04 05:25 | PDOC H&P ---
History of Present Illness Admission Date/PCP: 10/04/2018 03:11 ANDREA DUKE MD Patient complains of: Dyspnea History of Present Illness: SHERLYN WADSWORTH is a 73 year old male who presented to the emergency room with a 1 day history of dyspnea. He admits progressively worsening dyspnea over the last 24 hours prior to admission. His dyspnea worsens with exertion or other activity. His dyspnea has been accompanied by increasing edema in his bilateral lower extremities, mild orthopnea and a weight gain of more than 6 pounds. He denies any other accompanying or associated signs or symptoms. He admits 1 prior similar episode of lesser degree 2 days ago. He notes that he recently started a new cardiac medication after his recent long-term event recorder test was completed. He is being treated for paroxysmal atrial fibrillation and is on Eliquis and a new medication called Multaq. He has not identified any additional aggravating or ameliorating factors for his dyspnea. In the ER he was found to have significant edema and hypoxia with dyspnea requiring treatment with BiPAP. Patient was subsequently admitted to the hospital for further evaluation treatment. Past Medical History Cardiac Medical History: Reports: Coronary Artery Disease, Myocardial Infarction - 1997 AND minor [place] in 2012, quad bypass, on plavix, Hyperlipidema, Hypertension Denies: Atrial Fibrillation, Congestive Heart Failure, DVT, Peripheral Vascular Disease, Pulmonary Embolism Pulmonary Medical History: Reports: Asthma, Chronic Obstructive Pulmonary Disease (COPD) - stopped smoking several months ago, smoked for over 50 years Denies: Bronchitis, Pneumonia, Respiratory Failure EENT Medical History: Reports: Cataracts, Eyes - Chronic dry eyes and eyelid problems Neurological Medical History: Denies: Hemorrhagic CVA, Ischemic CVA, Multiple Sclerosis, Seizures Endocrine Medical History: Denies: Diabetes Mellitus Type 1, Diabetes Mellitus Type 2, Hyperthyroidism, Hypothyroidism Renal/ Medical History: Reports: Chronic Kidney Disease Denies: Nephrolithiasis Malignancy Medical History: Reports: Other - Prostate cancer GI Medical History: Reports: Gastroesophageal Reflux Disease Denies: Cirrhosis, Crohn's Disease, Hepatitis, Hiatal Hernia, Ulcerative Colitis Musculoskeltal Medical History: Reports: Arthritis, Gout Skin Medical History: Denies: Eczema, Psoriasis Psychiatric Medical History: Denies: Alcohol Dependency, Substance Abuse, Tobacco Dependency Traumatic Medical History: Reports: None Hematology: Reports: Anemia - Chronic due to kidney disease Denies: Bleeding Tendencies Infectious Medical History: Reports: None Past Surgical History Past Surgical History: Reports: Cardiac Catheterization, Coronary Artery Bypass Graft, Herniorrhaphy, Tonsillectomy, Other - Bilateral cataract surgery, bilateral eyelid surgery for dermatochalasis Social History Information Source: Patient Lives with: Spouse/Significant other Smoking Status: Former Smoker Frequency of Alcohol Use: None Hx Recreational Drug Use: No Drugs: None Hx Prescription Drug Abuse: No - Advance Directive Resuscitation Status: Full Code Surrogate healthcare decision maker:: Alexia Wadsworth Family History Family History: Malignancy Parental Family History Reviewed: Yes Children Family History Reviewed: No Sibling(s) Family History Reviewed.: Yes Medication/Allergy Home Medications: Allopurinol [Zyloprim 300 Mg Tablet] 300 mg PO DAILY 01/28/12 Aspirin [Aspirin 81 mg Chewable Tablet] 81 mg PO DAILY 01/28/12 Esomeprazole Magnesium [Nexium] 40 mg PO DAILY 01/28/12 Metoprolol Tartrate [Lopressor 50 mg Tablet] 12.5 mg PO DAILY 01/28/12 Nitroglycerin [Nitrostat 0.4 mg (1/150 Gr) Tabs 25/Bottle] 0.4 mg SL Q5MP PRN 01/28/12 Ranolazine [Ranexa 500 Mg Tab.Sr] 1,500 mg PO BID 01/28/12 Clopidogrel Bisulfate [Plavix 75 Mg Tablet] 75 mg PO DAILY 07/25/12 Ergocalciferol (Vitamin D2) [Vitamin D] 400 unit PO ASDIR PRN 10/20/15 Fish Oil/Dha/Epa [Fish Oil 1,200 mg Fish Oil] 3 each PO DAILY 10/20/15 Magnesium 400 mg PO BID 10/20/15 Rosuvastatin Calcium [Crestor 20 mg Tablet] 20 mg PO DAILY 10/20/15 Carboxymethylcellulose Sodium [Refresh Tears] 15 ml OP BID 01/10/16 Albuterol Sulfate [Proair HFA] 1 - 2 puff IH BID 05/11/16 Allergies/Adverse Reactions: No Known Allergies Allergy (Verified 05/19/16 06:59) Review of Systems Constitutional: ABSENT: chills, fever(s) Eyes: ABSENT: visual disturbances, other - Eye pain Ears: ABSENT: hearing changes, other - Ear pain Nose, Mouth, and Throat: ABSENT: mouth pain, sore throat Cardiovascular: PRESENT: as per HPI, dyspnea on exertion, edema, orthropnea. ABSENT: chest pain, palpitations Respiratory: PRESENT: dyspnea. ABSENT: cough Gastrointestinal: ABSENT: abdominal pain, constipation, diarrhea, nausea, vomiting Genitourinary: ABSENT: dysuria, hematuria Musculoskeletal: ABSENT: back pain, joint swelling, muscle weakness Integumentary: ABSENT: pruritus, rash Neurological: ABSENT: confusion, convulsions, focal weakness, memory loss, syncope Psychiatric: ABSENT: anxiety, depression Endocrine: ABSENT: cold intolerance, heat intolerance Hematologic/Lymphatic: ABSENT: easy bleeding, easy bruising Physical Exam Vital Signs: Temp Pulse Resp BP Pulse Ox 98.5 F 17 151/87 H 99 10/04/18 02:17 10/04/18 02:25 10/04/18 02:12 10/04/18 02:25 Intake & Output 10/02/18 10/03/18 10/04/18 23:59 23:59 23:59 Weight 99.79 kg General appearance: PRESENT: no acute distress, cooperative, other - Comfortable on BiPAP Head exam: ABSENT: atraumatic, normocephalic Eye exam: PRESENT: conjunctiva pink. ABSENT: conjunctival injection, scleral icterus Ear exam: PRESENT: normal external ear exam. ABSENT: bleeding, drainage Mouth exam: PRESENT: dry mucosa, neck supple Neck exam: PRESENT: JVD. ABSENT: thyromegaly, tracheal deviation Respiratory exam: PRESENT: rales - Bibasilar rales, symmetrical Cardiovascular exam: PRESENT: gallop - S4 gallop noted, RRR. ABSENT: clicks, rubs Pulses: PRESENT: normal radial pulses. ABSENT: normal dorsalis pedis pul - Bilateral dorsalis pedis pulses diminished due to edema of the lower extremities Vascular exam: PRESENT: normal capillary refill. ABSENT: pallor GI/Abdominal exam: PRESENT: normal bowel sounds, soft Rectal exam: PRESENT: deferred Extremities exam: PRESENT: pedal edema, other - 3+ pitting edema of the bilateral lower extremities to the mid thigh. ABSENT: joint swelling Musculoskeletal exam: ABSENT: deformity, dislocation Neurological exam: PRESENT: alert, oriented to person, oriented to place, oriented to time, oriented to situation, CN II-XII grossly intact. ABSENT: motor sensory deficit Psychiatric exam: PRESENT: appropriate affect, normal mood Skin exam: PRESENT: dry, intact, warm. ABSENT: jaundice, rash, urticaria Results Laboratory Results: 10/04/18 02:18 10/04/18 02:18 10/04/18 10/04/18 02:18 02:18 WBC 6.1 RBC 3.40 L Hgb 11.7 L Hct 34.3 L MCV 101 H MCH 34.5 H MCHC 34.2 RDW 14.7 H Plt Count 131 L Seg Neutrophils % 73.4 Lymphocytes % 14.2 Monocytes % 10.8 Eosinophils % 1.2 Basophils % 0.4 Absolute Neutrophils 4.5 Absolute Lymphocytes 0.9 Absolute Monocytes 0.7 Absolute Eosinophils 0.1 Absolute Basophils 0.0 Sodium 142.3 Potassium 4.2 Chloride 104 Carbon Dioxide 30 Anion Gap 8 BUN 29 H Creatinine 1.83 H Est GFR ( Amer) 44 L Est GFR (Non-Af Amer) 37 L Glucose 113 H Calcium 9.2 Total Bilirubin 0.5 AST 37 ALT 32 Alkaline Phosphatase 69 Total Protein 6.5 Albumin 3.9 10/04/18 02:18 Troponin I 0.023 NT-Pro-B Natriuret Pep 632 Impressions: Chest X-Ray 10/04/18 02:11 IMPRESSION: 1. New airspace disease in the inferomedial right lung base concerning for a pneumonic infiltrate. 2. Remote median sternotomy. Assessment and Plan - Diagnosis (1) Acute congestive heart failure Qualifiers: Heart failure type: unspecified Qualified Code(s): I50.9 - Heart failure, unspecified Is this a current diagnosis for this admission?: Yes Plan: Patient's congestive heart failure be evaluated with an echocardiogram and will be followed with daily laboratory evaluations including a CBC, basic metabolic profile and a magnesium level as a way of monitoring his treatment and the effects of his therapy. Serial cardiac enzymes will be obtained initially. Morphine sulfate 2 mg IV every 2 hours will be used as required for orthopnea and dyspnea. Patient will be started on the heart failure protocol. His local obstetrician gynecologist is Dr. Olivas. Feels probably most important to stop the patient's Multaq (dronedarone) as this has frequently caused new onset congestive heart failure in the past. (2) Acute respiratory failure with hypoxia Is this a current diagnosis for this admission?: Yes Plan: Patient's respiratory failure will be treated with airway pressure support devices such as BiPAP. He will be provided supplemental oxygen using 1 of these methods as required to maintain an adequate oxygen saturation. His O2 sat will be monitored frequently throughout his hospital course. (3) Hypertension Qualifiers: Hypertension type: essential hypertension Qualified Code(s): I10 - Essential (primary) hypertension Is this a current diagnosis for this admission?: Yes Plan: Patient's blood pressure be followed closely throughout his hospital course. He will be continued on his usual antihypertensive regimen unless adjustments are required for treatment of his congestive heart failure. (4) Coronary artery disease Qualifiers: Coronary Disease-Associated Artery/Lesion type: [place] artery [place] vs. transplanted heart: [place] heart Associated angina: without angina Qualified Code(s): I25.10 - Atherosclerotic heart disease of [place] coronary artery without angina pectoris Is this a current diagnosis for this admission?: Yes Plan: Patient be continued on his usual cardiac medications, unless adjustments are re quired for treatment of his congestive heart failure. He will be observed for any chest pain or other cardiac symptoms during his hospital course. (5) Hyperlipidemia Qualifiers: Hyperlipidemia type: pure hypercholesterolemia Qualified Code(s): E78.00 - Pure hypercholesterolemia, unspecified; E78.0 - Pure hypercholesterolemia Is this a current diagnosis for this admission?: Yes Plan: Patient will be continued on his cholesterol-lowering agents and a cardiac diet. A lipid profile will be obtained to assess the efficacy of his current therapy. (6) Paroxysmal atrial fibrillation Is this a current diagnosis for this admission?: Yes Plan: Patient has recently diagnosed paroxysmal atrial fibrillation. He was placed on Eliquis and Multaq by his obstetrician gynecologist Dr. Olivas. At this time he will be co ntinued on Eliquis but Multaq will have to be discontinued due to his new onset heart failure. Patient will follow-up with Dr. Olivas soon after his release from the hospital. - Time Time Spent with patient: 25-34 minutes Medications reviewed and adjusted accordingly: Yes Anticipated discharge: Home with Homehealth - Inpatient Certification Based on my medical assessment, after consideration of the patient's comorbidities, presenting symptoms, or acuity I expect that the services needed warrant INPATIENT care.: Yes I certify that my determination is in accordance with my understanding of Medicare's requirements for reasonable and necessary INPATIENT services [42 CFR 412.3e].: Yes Medical Necessity: Need Close Monitoring Due to Risk of Patient Decompensation, Need For Continuous Telemetry Monitoring, Risk of Complication if Not Cared For in Hospital
--- NOTE | 2018-10-04 05:28 | ADVANCED CARE ---
- Diagnosis (1) Acute congestive heart failure Diagnosis Current: Yes (2) Acute respiratory failure with hypoxia Diagnosis Current: Yes (3) Hypertension Diagnosis Current: Yes (4) Coronary artery disease Diagnosis Current: Yes (5) Hyperlipidemia Diagnosis Current: Yes (6) Paroxysmal atrial fibrillation Diagnosis Current: Yes Attendance: The patient, Alexia Vazquez his and myself. Resuscitation Status: Full Code Discussion: After brief discussion the patient will be continued as a full code for resuscitation status during his hospital course. I have recommended that they consider an advanced directive or a living well of some type in the reasonably near future as a means of communicating their desires for end-of-life care with each other. Patient has named Alexia Vazquez as his designated surrogate medical decision maker. Care Planning Goals: 1. Patient will be full CODE STATUS for this admission until further notice. 2. Alexia Wadsworth is the patient's designated surrogate medical decision-maker. Document(s) Completed: Following entries will be made to the patient's permanent medical record, current medical record and current orders via EMR entry: 1. Patient will be full CODE STATUS for this admission until further notice. 2. Alexia Wadsworth is the patient's designated surrogate medical decision-maker. Time Spent: 15 minutes
[2018-10-04] MEDS: PANTOPRAZOLE SODIUM 40 MG TABLET.DR PO SCH ×2 (05:29→17:36)
[2018-10-04 05:41] LABS: ARTERIAL BLOOD H2CO3 1.22 mmol/L (1.05-1.35); ARTERIAL BLOOD HCO3 27.3 mmol/L (20-24); ARTERIAL BLOOD O2 SATURATION 98.8 % (94-98); ARTERIAL BLOOD PCO2 40.5 mmHg (35-45); ARTERIAL BLOOD PH 7.45 (7.35-7.45); ARTERIAL BLOOD PO2 136.4 mmHg (80-100); ARTERIAL BLOOD TOTAL CO2 28.5 mmol/L (23-27)
[2018-10-04 05:42] LABS: ARTERIAL BLOOD FIO2 35%
[2018-10-04] MEDS ORDERED: NORMAL SALINE 250 ML IV PRN ×2 (05:43)
[2018-10-04] MEDS ORDERED: ACETAMINOPHEN 325 MG TABLET PO PRN (05:43)
[2018-10-04] MEDS ORDERED: DIPHENHYDRAMINE HCL 50 MG/ML VIAL IV PRN (05:43)
[2018-10-04] MEDS ORDERED: FUROSEMIDE INJ/PF 20 MG/2 ML SDV IV PRN (05:43)
[2018-10-04] MEDS ORDERED: HEPARIN SOD (PORCINE) 5,000 UNIT/ML 1 ML VIAL SUBCUT SCH (06:00)
--- NOTE | 2018-10-04 08:57 | Progress Note Acknowledgement ---
Progress Note Acknowledgement Progess Note Acknowledgement: I, the undersigned member of the medical staff with appropriate privileges and with supervisory authority over [ PAC ], a dependent practice allied health professional, acknowledge that I have reviewed the progress notes entered on this patient, and in my professional judgment believe that the assessment made and/or any care evidenced was appropriate
--- NOTE | 2018-10-04 09:08 | PDOC PROGRESS REPORT ---
Subjective Progress Note for:: 10/04/18 Subjective:: 10/04/2018 Patient was admitted last night by the hospitalist for onset of CHF patient had been placed on a new medication which may have prompted this, patient states that for the last 5 days he has noticed some increase in fluid in both legs. Yesterday he also noticed some shortness of breath. Patient states he is never had CHF before but he has had a heart attack in the past. Patient has also had bypass surgery as well as hypertension Patient is being diuresed and feels much better today. Chest x-ray will be repeated tomorrow as well as BNP. Patient's vital signs are stable he is afebrile. Weight will be followed daily he is medically stable. Reason For Visit: HEART FAILURE Physical Exam Vital Signs: Temp Pulse Resp BP Pulse Ox 97.7 F 63 24 H 132/70 H 100 10/04/18 04:31 10/04/18 06:40 10/04/18 05:22 10/04/18 04:31 10/04/18 04:31 Intake & Output 10/03/18 10/04/18 10/05/18 06:59 06:59 06:59 Output Total 750 Balance -750 Weight 99.79 kg General appearance: PRESENT: no acute distress, well-developed, well-nourished Head exam: PRESENT: atraumatic, normocephalic Neck exam: ABSENT: carotid bruit, JVD, lymphadenopathy, thyromegaly Respiratory exam: PRESENT: rales, wheezes, other - Patient has a history of COPD as well as emphysema Cardiovascular exam: PRESENT: RRR. ABSENT: diastolic murmur, rubs, systolic murmur Neurological exam: PRESENT: alert, awake, oriented to person, oriented to place, oriented to time, oriented to situation, CN II-XII grossly intact. ABSENT: motor sensory deficit Psychiatric exam: PRESENT: appropriate affect, normal mood. ABSENT: homicidal ideation, suicidal ideation Skin exam: PRESENT: other - Patient this morning only has 1+ pitting edema both lower extremities Results Laboratory Results: 10/04/18 02:18 10/04/18 02:18 10/04/18 10/04/18 10/04/18 02:18 02:18 05:24 WBC 6.1 RBC 3.40 L Hgb 11.7 L Hct 34.3 L MCV 101 H MCH 34.5 H MCHC 34.2 RDW 14.7 H Plt Count 131 L Seg Neutrophils % 73.4 Lymphocytes % 14.2 Monocytes % 10.8 Eosinophils % 1.2 Basophils % 0.4 Absolute Neutrophils 4.5 Absolute Lymphocytes 0.9 Absolute Monocytes 0.7 Absolute Eosinophils 0.1 Absolute Basophils 0.0 Carbonic Acid 1.22 HCO3/H2CO3 Ratio 22:1 ABG pH 7.45 ABG pCO2 40.5 ABG pO2 136.4 H ABG HCO3 27.3 H ABG O2 Saturation 98.8 H ABG Base Excess 3.0 FiO2 35% Sodium 142.3 Potassium 4.2 Chloride 104 Carbon Dioxide 30 Anion Gap 8 BUN 29 H Creatinine 1.83 H Est GFR ( Amer) 44 L Est GFR (Non-Af Amer) 37 L Glucose 113 H Calcium 9.2 Total Bilirubin 0.5 AST 37 ALT 32 Alkaline Phosphatase 69 Total Protein 6.5 Albumin 3.9 10/04/18 02:18 Troponin I 0.023 NT-Pro-B Natriuret Pep 632 Impressions: Chest X-Ray 10/04/18 02:11 IMPRESSION: 1. New airspace disease in the inferomedial right lung base concerning for a pneumonic infiltrate. 2. Remote median sternotomy. Assessment and Plan - Diagnosis (1) Acute congestive heart failure Qualifiers: Heart failure type: unspecified Qualified Code(s): I50.9 - Heart failure, unspecified Is this a current diagnosis for this admission?: Yes Plan: Patient's congestive heart failure be evaluated with an echocardiogram and will be followed with daily laboratory evaluations including a CBC, basic metabolic profile and a magnesium level as a way of monitoring his treatment and the effects of his therapy. Serial cardiac enzymes will be obtained initially. Morphine sulfate 2 mg IV every 2 hours will be used as required for orthopnea and dyspnea. Patient will be started on the heart failure protocol. His local territory service representative is Dr. Olivas. Feels probably most important to stop the patient's Multaq (dronedarone) as this has frequently caused new onset congestive heart failure in the past. 10/04/2018 patient feels significantly better today, peripheral edema is much improved. Patient is in no respiratory distress (2) Coronary artery disease Qualifiers: Coronary Disease-Associated Artery/Lesion type: [place] artery [place] vs. transplanted heart: [place] heart Associated angina: without angina Qualified Code(s): I25.10 - Atherosclerotic heart disease of [place] coronary artery without angina pectoris Is this a current diagnosis for this admission?: Yes Plan: Patient be continued on his usual cardiac medications, unless adjustments are required for treatment of his congestive heart failure. He will be observed for any chest pain or other cardiac symptoms during his hospital course. 10/04/2018 no chest pain (3) Dyspnea Qualifiers: Dyspnea type: unspecified Qualified Code(s): R06.00 - Dyspnea, unspecified Is this a current diagnosis for this admission?: Yes Plan: 10/04/2018 patient is on diuretics no acute shortness of breath this morning (4) Fluid overload Qualifiers: Hypervolemia type: unspecified Qualified Code(s): E87.70 - Fluid overload, unspecified Is this a current diagnosis for this admission?: Yes Plan: 10/04/2018 Patient has 1+ pitting edema in both lower extremities. Patient states that he has voided 4 urinals since admission (5) Hyperlipidemia Qualifiers: Hyperlipidemia type: pure hypercholesterolemia Qualified Code(s): E78.00 - Pure hypercholesterolemia, unspecified; E78.0 - Pure hypercholesterolemia Is this a current diagnosis for this admission?: Yes Plan: Patient will be continued on his cholesterol-lowering agents and a cardiac diet. A lipid profile will be obtained to assess the efficacy of his current therapy. 10/04/2018 Patient is medically stable (6) Hypertension Qualifiers: Hypertension type: essential hypertension Qualified Code(s): I10 - E ssential (primary) hypertension Is this a current diagnosis for this admission?: Yes Plan: Patient's blood pressure be followed closely throughout his hospital course. He will be continued on his usual antihypertensive regimen unless adjustments are required for treatment of his congestive heart failure. 10/04/2018 blood pressure is well controlled on his current medications - Time Time Spent with patient: 15-24 minutes
[2018-10-04 09:38] LABS: CREATINE KINASE MB 0.72 ng/mL (<4.55); TROPONIN I 0.031 ng/mL
[2018-10-04] MEDS: METOPROLOL SUCCINATE 50 MG TAB.SR.24H PO SCH (09:44)
[2018-10-04] MEDS: DOCUSATE SODIUM 100 MG CAPSULE PO SCH (09:45)
[2018-10-04] MEDS: ALLOPURINOL 100 MG TABLET PO SCH (09:45)
[2018-10-04] MEDS: LOSARTAN POTASSIUM 50 MG TABLET PO SCH (09:45)
[2018-10-04] MEDS: APIXABAN 5 MG TABLET PO SCH ×2 (09:45→17:36)
[2018-10-04] MEDS: TORSEMIDE 20 MG TABLET PO SCH (09:45)
[2018-10-04] MEDS ORDERED: CLOPIDOGREL BISULFATE 75 MG TABLET PO SCH (10:00)
--- NOTE | 2018-10-04 10:13 | EKG REPORT ---
SEVERITY:- ABNORMAL ECG - SINUS RHYTHM MULTIPLE ATRIAL PREMATURE COMPLEXES INFERIOR INFARCT, AGE INDETERMINATE : Confirmed by: Milagro Rasheed 04-Oct-2018 10:12:14
[2018-10-04] MEDS: LEVALBUTEROL HCL NEB 0.63 MG/3 ML AMPUL NEB PRN ×2 (10:53→15:52)
[2018-10-04 14:40] LABS: CREATINE KINASE MB 0.75 ng/mL (<4.55); TROPONIN I 0.019 ng/mL
--- NOTE | 2018-10-04 19:39 | XCELERA REPORT ---
[address] [address] Transthoracic Echocardiogram Report Name: SHERLYN MACIAS Age: 73 yrs Gender: Male : 1945 Patient Status: Inpatient Patient Location: [address] [place], [place] [address] Study Date: 10/04/2018 09:58 AM Weight: 220 lb Procedure: A two-dimensional transthoracic echocardiogram with color flow and Doppler was performed. Study Quality: Fair. Reason For Study: acute chf History: CHF. Ordering Physician: ANDREA HUGHES Performed By: Teresa Knott Interpretation Summary The left ventricle is normal in size. There is normal left ventricular wall thickness. LV EF is > tHAN 60% The left ventricular ejection fraction is within normal limits. Doppler measurements suggest normal left ventricular diastolic function The left ventricular wall motion is normal. No ASD,VSD,or PFO seen. The right ventricle is grossly normal size. The right atrium is normal. The left atrial size is normal. There is no evidence of mitral valve prolapse. There is no vegetation seen on the mitral valve. There is no mitral valve stenosis. There is a trace amount of mitral regurgitation There is no aortic valvular vegetation. There is no aortic valve stenosis There is no LVOT obstruction. No aortic regurgitation is present. There is no tricuspid stenosis. There is a trace amount of tricuspid regurgitation There is mild pulmonary hypertension by echo RVSP is 33 to 38 mm of Hg , with RA mean of 5 to 10. There is no pulmonic valvular stenosis. There is a trace amount of pulmonic regurgitation The aortic root is normal size. The inferior vena cava appeared normal and decreased > 50% with respiration (RAP 5-10 mmHg) There is no pericardial effusion. MMode/2D Measurements & Calculations RVDd: 3.5 cm LVIDd: 5.7 cm FS: 10.5 % Ao root diam: 3.4 cm IVSd: 1.1 cm LVIDs: 5.1 cm EDV(Teich): 162.4 ml LVPWd: 1.2 cm ESV(Teich): 125.8 ml Ao root area: 9.1 cm2 EF(Teich): 22.6 % Doppler Measurements & Calculations MV E max robyn: MV dec slope: Ao V2 max: LV V1 max P.0 cm/sec 140.0 cm/sec 5.4 mmHg MV A max robyn: 547.0 cm/sec2 Ao max PG: LV V1 max: 96.8 cm/sec MV dec time: 0.23 sec7.8 mmHg 116.5 cm/sec MV E/A: 1.3 PA V2 max: TR max robyn: 78.8 cm/sec 263.0 cm/sec PA max P.5 mmHg TR max P.7 mmHg Left Ventricle The left ventricle is normal in size. There is normal left ventricular wall thickness. LV EF is > tHAN 60%. The left ventricular ejection fraction is within normal limits. Doppler measurements suggest normal left ventricular diastolic function. The left ventricular wall motion is normal. No ASD,VSD,or PFO seen. Right Ventricle The right ventricle is grossly normal size. Atria The right atrium is normal. The left atrial size is normal. Mitral Valve There is no evidence of mitral valve prolapse. There is no vegetation seen on the mitral valve. There is no mitral valve stenosis. There is a trace amount of mitral regurgitation. Aortic Valve There is no aortic valvular vegetation. There is no aortic valve stenosis. There is no LVOT obstruction. No aortic regurgitation is present. Tricuspid Valve There is no tricuspid stenosis. There is a trace amount of tricuspid regurgitation. There is mild pulmonary hypertension by echo. RVSP is 33 to 38 mm of Hg , with RA mean of 5 to 10. Pulmonic Valve There is no pulmonic valvular stenosis. There is a trace amount of pulmonic regurgitation. Great Vessels The aortic root is normal size. The inferior vena cava appeared normal and decreased > 50% with respiration (RAP 5-10 mmHg). Effusions There is no pericardial effusion. : ANDREA HUGHES > Breanne Duran
[2018-10-04] MEDS: ACETAMINOPHEN 325 MG TABLET PO PRN (20:27)
[2018-10-04 20:51] LABS: CREATINE KINASE MB 0.61 ng/mL (<4.55); TROPONIN I 0.019 ng/mL
[2018-10-04] MEDS: ATORVASTATIN CALCIUM 40 MG TABLET PO SCH (21:01)
[2018-10-05] MEDS: PANTOPRAZOLE SODIUM 40 MG TABLET.DR PO SCH ×2 (05:58→16:24)
[2018-10-05 06:17] LABS: ABSOLUTE EOSINOPHILS # (AUTO) 0.1 10^3/uL (0.0-0.6); ABSOLUTE LYMPHOCYTES (AUTO) 1.2 10^3/uL (0.5-4.7); ABSOLUTE MONOCYTES (AUTO) 0.6 10^3/uL (0.1-1.4); ABSOLUTE NEUT (AUTO) 2.3 10^3/uL (1.7-8.2); BASOPHILS % (AUTO) 0.6 % (0-2); EOSINOPHILS % (AUTO) 2.3 % (0-6); HEMATOCRIT 32.9 % (37.9-51.0); HEMOGLOBIN 11.1 g/dL (13.5-17.0); LYMPHOCYTES % (AUTO) 28.5 % (13-45); MEAN CORPUSCULAR HEMOGLOBIN 33.9 pg (27.0-33.4); MEAN CORPUSCULAR HGB CONC 33.9 g/dL (32.0-36.0); MEAN CORPUSCULAR VOLUME 100 fl (80-97); MONOCYTES % (AUTO) 13.9 % (3-13); PLATELET COUNT 108 10^3/uL (150-450); RED BLOOD COUNT 3.29 10^6/uL (4.35-5.55); RED CELL DISTRIBUTION WIDTH 14.6 % (11.5-14.0); SEGMENTED NEUTROPHILS % (AUTO) 54.7 % (42-78); TOTAL CELLS COUNTED % (AUTO) 100 %; WHITE BLOOD COUNT 4.2 10^3/uL (4.0-10.5)
[2018-10-05 06:38] LABS: CHOLESTEROL 141.17 mg/dL (0-200); TRIGLYCERIDES 86 mg/dL (<150)
[2018-10-05 06:49] LABS: DIRECT LDL 73 mg/dL (<100); FREE T3 3.2 pg/mL (2.77-5.27); FREE T4 (FREE THYROXINE) 1.61 ng/dL (0.78-2.19)
[2018-10-05 07:03] LABS: THYROID STIMULATING HORMONE 0.51 uIU/mL (0.47-4.68)
[2018-10-05] MEDS: TORSEMIDE 20 MG TABLET PO SCH (10:10)
[2018-10-05] MEDS: DOCUSATE SODIUM 100 MG CAPSULE PO SCH (10:11)
[2018-10-05] MEDS: APIXABAN 5 MG TABLET PO SCH ×2 (10:11→18:00)
[2018-10-05] MEDS: LOSARTAN POTASSIUM 50 MG TABLET PO SCH (10:11)
[2018-10-05] MEDS: ALLOPURINOL 100 MG TABLET PO SCH (10:11)
[2018-10-05] MEDS: METOPROLOL SUCCINATE 50 MG TAB.SR.24H PO SCH (10:12)
[2018-10-05] MEDS: LEVALBUTEROL HCL NEB 0.63 MG/3 ML AMPUL NEB PRN ×2 (10:31→20:24)
--- NOTE | 2018-10-05 12:08 | RADIOLOGY REPORT (SQ) ---
EXAM DESCRIPTION: CHEST 2 VIEWS COMPLETED DATE/TIME: 10/05/2018 10:20 am REASON FOR STUDY: follow up COMPARISON: 10/04/2018 TECHNIQUE: Frontal and lateral radiographic views of the chest acquired. NUMBER OF VIEWS: Two view. LIMITATIONS: None. FINDINGS: LUNGS AND PLEURA: Hyperinflated lungs with mild blunting right costophrenic angle, as befo re. Slightly improved right basilar aeration otherwise. MEDIASTINUM AND HILAR STRUCTURES: Stable contours. HEART AND VASCULAR STRUCTURES: Cardiac enlargement, stable. BONES: No acute findings. HARDWARE: None in the chest. OTHER: No other significant finding. IMPRESSION: Slightly improved right basilar aeration. TECHNICAL DOCUMENTATION: JOB ID: [id number] [employer]- All Rights Reserved Reading location - IP/workstation name: [email or web address]
--- NOTE | 2018-10-05 13:19 | PDOC PROGRESS REPORT ---
Subjective Progress Note for:: 10/05/18 Subjective:: 10/04/2018 Patient was admitted last night by the hospitalist for onset of CHF patient had been placed on a new medication which may have prompted this, patient states that for the last 5 days he has noticed some increase in fluid in both legs. Yesterday he also noticed some shortness of breath. Patient states he is never had CHF before but he has had a heart attack in the past. Patient has also had bypass surgery as well as hypertension Patient is being diuresed and feels much better today. Chest x-ray will be repeated tomorrow as well as BNP. Patient's vital signs are stable he is afebrile. Weight will be followed daily he is medically stable. 10/05/2018 patient's BNP is gone up slightly into the 600s admission. White count still normal electrolytes are normal. O2 sat is ranging anywhere from 93 to 96% on room air. Patient continues to diurese. Chest x-ray from today shows a slight improvement. 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 Patient and his had their questions answered. She is up and ambulatory about the room in no distress. Patient will be walked in the hallway and check his O2 sat for the possible need of home O2, though I doubt this will be necessary Reason For Visit: HEART FAILURE Physical Exam Vital Signs: Temp Pulse Resp BP Pulse Ox 97.8 F 49 L 16 103/56 L 96 10/05/18 12:26 10/05/18 12:26 10/05/18 12:26 10/05/18 12:26 10/05/18 12:26 Intake & Output 10/04/18 10/05/18 10/06/18 06:59 06:59 06:59 Intake Total 920 Output Total 750 950 Balance -750 -30 Weight 99.79 kg 97.2 kg General appearance: PRESENT: no acute distress, well-developed, well-nourished Respiratory exam: PRESENT: clear to auscultation tayo, crackles, other - Mild. ABSENT: rales, rhonchi, wheezes Cardiovascular exam: PRESENT: RRR. ABSENT: diastolic murmur, rubs, systolic murmur Neurological exam: PRESENT: alert, awake, oriented to person, oriented to place, oriented to time, oriented to situation, CN II-XII grossly intact. ABSENT: motor sensory deficit Psychiatric exam: PRESENT: appropriate affect, normal mood. ABSENT: homicidal ideation, suicidal ideation Results Laboratory Results: 10/05/18 05:13 10/04/18 02:18 10/05/18 10/05/18 10/05/18 05:13 05:13 05:13 WBC 4.2 RBC 3.29 L Hgb 11.1 L Hct 32.9 L MCV 100 H MCH 33.9 H MCHC 33.9 RDW 14.6 H Plt Count 108 L Seg Neutrophils % 54.7 Lymphocytes % 28.5 Monocytes % 13.9 H Eosinophils % 2.3 Basophils % 0.6 Absolute Neutrophils 2.3 Absolute Lymphocytes 1.2 Absolute Monocytes 0.6 Absolute Eosinophils 0.1 Absolute Basophils 0.0 Magnesium 1.9 Triglycerides 86 Cholesterol 141.17 LDL Cholesterol Direct 73 VLDL Cholesterol 17.0 HDL Cholesterol 54 TSH 0.51 Free T4 1.61 Free T3 pg/mL 3.20 10/04/18 10/04/18 10/04/18 02:18 08:00 08:00 Creatine Kinase 53 L CK-MB (CK-2) 0.72 Troponin I 0.023 0.031 NT-Pro-B Natriuret Pep 632 10/04/18 10/04/18 10/04/18 13:48 13:48 20:12 Creatine Kinase 48 L 49 L CK-MB (CK-2) 0.75 Troponin I 0.019 NT-Pro-B Natriuret Pep 10/04/18 10/05/18 20:12 05:13 Creatine Kinase CK-MB (CK-2) 0.61 Troponin I 0.019 NT-Pro-B Natriuret Pep 816 Impressions: Chest X-Ray 10/05/18 07:00 IMPRESSION: Slightly improved right basilar aeration. Assessment and Plan - Diagnosis (1) Acute congestive heart failure Qualifiers: Heart failure type: unspecified Qualified Code(s): I50.9 - Heart failure, unspecified Is this a current diagnosis for this admission?: Yes Plan: Patient's congestive heart failure be evaluated with an echocardiogram and will be followed with daily laboratory evaluations including a CBC, basic metabolic profile and a magnesium level as a way of monitoring his treatment and the effects of his therapy. Serial cardiac enzymes will be obtained initially. Morphine sulfate 2 mg IV every 2 hours will be used as required for orthopnea and dyspnea. Patient will be started on the heart failure protocol. His local photographic supervisor is Dr. Olivas. Feels probably most important to stop the patient's Multaq (dronedarone) as this has frequently caused new onset congestive heart failure in the past. 10/04/2018 patient feels significantly better today, peripheral edema is much improved. Patient is in no respiratory distress 10/05/2018 patient appears to be improving no respiratory distress (2) Coronary artery disease Qualifiers: Coronary Disease-Associated Artery/Lesion type: [place] artery [place] vs. transplanted heart: [place] heart Associated angina: without angina Qualified Code(s): I25.10 - Atherosclerotic heart disease of [place] coronary artery without angina pectoris Is this a current diagnosis for this admission?: Yes Plan: Patient be continued on his usual cardiac medications, unless adjustments are required for treatment of his congestive heart failure. He will be observed for any chest pain or other cardiac symptoms during his hospital course. 10/04/2018 no chest pain 10/05/2018. No chest pain no significant shortness of breath (3) Dyspnea Qualifiers: Dyspnea type: unspecified Qualified Code(s): R06.00 - Dyspnea, unspecified Is this a current diagnosis for this admission?: Yes Plan: 10/04/2018 patient is on diuretics no acute shortness of breath this morning 10/05/2018 patient appears to be back at his baseline (4) Fluid overload Qualifiers: Hypervolemia type: unspecified Qualified Code(s): E87.70 - Fluid overload, unspecified Is this a current diagnosis for this admission?: Yes Plan: 10/04/2018 Patient has 1+ pitting edema in both lower extremities. Patient states that he has voided 4 urinals since admission 10/05/2018 patient still has 1+ pitting edema both lower extremities patient continues to void (5) Hyperlipidemia Qualifiers: Hyperlipidemia type: pure hypercholesterolemia Qualified Code(s): E78.00 - Pure hypercholesterolemia, unspecified; E78.0 - Pure hypercholesterolemia Is this a current diagnosis for this admission?: No (6) Hypertension Qualifiers: Hypertension type: essential hypertension Qualified Code(s): I10 - Essential (primary) hypertension Is this a current diagnosis for this admission?: No - Time Time Spent with patient: 15-24 minutes
[2018-10-05] MEDS: ATORVASTATIN CALCIUM 40 MG TABLET PO SCH (21:32)
[2018-10-05] MEDS: ACETAMINOPHEN 325 MG TABLET PO PRN (21:32)
[2018-10-06 06:28] LABS: ABSOLUTE EOSINOPHILS # (AUTO) 0.2 10^3/uL (0.0-0.6); ABSOLUTE LYMPHOCYTES (AUTO) 1.4 10^3/uL (0.5-4.7); ABSOLUTE MONOCYTES (AUTO) 0.6 10^3/uL (0.1-1.4); ABSOLUTE NEUT (AUTO) 2.1 10^3/uL (1.7-8.2); BASOPHILS % (AUTO) 0.7 % (0-2); EOSINOPHILS % (AUTO) 3.6 % (0-6); HEMATOCRIT 33.5 % (37.9-51.0); HEMOGLOBIN 11.3 g/dL (13.5-17.0); LYMPHOCYTES % (AUTO) 32.2 % (13-45); MEAN CORPUSCULAR HEMOGLOBIN 33.7 pg (27.0-33.4); MEAN CORPUSCULAR HGB CONC 33.7 g/dL (32.0-36.0); MEAN CORPUSCULAR VOLUME 100 fl (80-97); MONOCYTES % (AUTO) 15.1 % (3-13); PLATELET COUNT 129 10^3/uL (150-450); RED BLOOD COUNT 3.35 10^6/uL (4.35-5.55); RED CELL DISTRIBUTION WIDTH 14.4 % (11.5-14.0); SEGMENTED NEUTROPHILS % (AUTO) 48.4 % (42-78); TOTAL CELLS COUNTED % (AUTO) 100 %; WHITE BLOOD COUNT 4.3 10^3/uL (4.0-10.5)
[2018-10-06] MEDS: PANTOPRAZOLE SODIUM 40 MG TABLET.DR PO SCH (06:43)
[2018-10-06 07:01] LABS: ANION GAP 6 (5-19); BLOOD UREA NITROGEN 26 mg/dL (7-20); CALCIUM 8.6 mg/dL (8.4-10.2); CARBON DIOXIDE 29 mmol/L (22-30); CHLORIDE 105 mmol/L (98-107); GLUCOSE 75 mg/dL (75-110); POTASSIUM 3.6 mmol/L (3.6-5.0)
[2018-10-06] MEDS: ALLOPURINOL 100 MG TABLET PO SCH (10:30)
[2018-10-06] MEDS: LOSARTAN POTASSIUM 50 MG TABLET PO SCH (10:31)
[2018-10-06] MEDS: METOPROLOL SUCCINATE 50 MG TAB.SR.24H PO SCH (10:31)
[2018-10-06] MEDS: DOCUSATE SODIUM 100 MG CAPSULE PO SCH (10:31)
[2018-10-06] MEDS: APIXABAN 5 MG TABLET PO SCH (10:31)
[2018-10-06] MEDS: TORSEMIDE 20 MG TABLET PO SCH (10:31)
[2018-10-06 11:16] VITALS: BP 110/59
--- NOTE | 2018-10-06 16:41 | PDOC DISCHARGE SUMMARY ---
General - Admit/Disc Date/PCP Admission Date/Primary Care Provider: 10/04/18 03:21 ANDREA DUKE MD Discharge Date: 10/06/18 - Discharge Diagnosis (1) Acute congestive heart failure Is this a current diagnosis for this admission?: Yes Summary: 10/06/2018 He was admitted to the hospital for mild congestive heart failure. Admitting physician felt that this may be secondary to a multiecho new medication he did not put on. Patient was placed on Demadex for diuresis. Patient had been complaining of one day prior to admission with increased shortness of breath patient has also noticed an increase of peripheral edema weight gain of more than 6 pounds. (2) Coronary artery disease Is this a current diagnosis for this admission?: Yes Summary: 10/06/2018 patient has a history of myocardial infarction 1997 and also 2012 patient is also had a four-vessel bypass (3) Dyspnea Is this a current diagnosis for this admission?: Yes Summary: 10/06/2018 patient is always had a little bit of shortness of breath but recently has been sleeping on 2 pillows and especially 24 hours prior to admission. Patient had to be put on BiPAP in the emergency room. (4) Fluid overload Is this a current diagnosis for this admission?: Yes Summary: 10/06/2018 patient was started on Demadex as a diuresis (5) Hyperlipidemia Is this a current diagnosis for this admission?: No (6) Hypertension Is this a current diagnosis for this admission?: No - Additional Information Resuscitation Status: Full Code Discharge Diet: Cardiac Discharge Activity: Activity As Tolerated Prescriptions: Furosemide [Lasix 20 mg Tablet] 20 mg PO QAM #30 tablet Losartan Potassium [Cozaar 50 mg Tablet] 50 mg PO DAILY 30 Days #30 tablet NS Home Medications: Allopurinol [Zyloprim 300 mg Tablet] 300 mg PO DAILY 10/04/18 Apixaban [Eliquis 5 mg Tablet] 5 mg PO BID 10/04/18 Cyanocobalamin (Vitamin B-12) [Vitamin B-12 1000 mcg Tablet] 1 tab PO DAILY 10/04/18 Dronedarone Hydrochloride [Multaq 400 mg Tablet] 400 mg PO BID 10/04/18 Fenofibrate Nanocrystallized [Tricor 48 mg Tablet] 48 mg PO BID 10/04/18 Fluticasone/Umeclidin/Vilanter [Trelegy 100-62.5-25 Mcg Ellipta 14 Dose/Dpi] 1 each PO DAILY 10/04/18 Guaifenesin [Mucinex] 600 mg PO Q12HP PRN 10/04/18 Ipratropium/Albuterol Sulfate [Combivent Respimat 4 gm Mdi] 1 puff IH QIDP PRN 10/04/18 Magnesium Oxide [Mag-Ox 400 mg Tablet] 400 mg PO BID 10/04/18 Multivitamin [Tab-A-Patricia (Multiple Vitamin) Tablet] 1 tab PO DAILY 10/04/18 Nitroglycerin [Nitrostat 0.4 mg (1/150 Gr) Tabs 25/Bottle] 1 tab SL Q5MP PRN 10/04/18 Mission-3 Acid Ethyl Esters [Lovaza 1 gm Capsule] 2 gm PO BID 10/04/18 Ranolazine [Ranexa 500 mg Tab.sr] 500 mg PO Q12 10/04/18 Rosuvastatin Calcium [Crestor 20 mg Tablet] 20 mg PO Q12 10/04/18 Tamsulosin HCl [Flomax 0.4 mg Cap.sr] 0.4 mg PO QPM 10/04/18 Furosemide [Lasix 20 mg Tablet] 20 mg PO QAM #30 tablet 10/06/18 Losartan Potassium [Cozaar 50 mg Tablet] 50 mg PO DAILY 30 Days #30 tablet NS 10/06/18 History of Present Illness History of Present Illness: SHERLYN MACIAS is a 73 year old male 10/06/2018 patient was seen in the emergency room for a 1 day history of increased shortness of breath and states he is also had lower extremity edema. Patient states in the past has been treated for paroxysmal atrial fib was on Eliquis and put on a new medication called Multaq. Patient diuresed quite well from the Demadex shortness of breath solved at the time of discharge patient was up and ambulatory with no respiratory distress. Chest x-ray did not show any sign of overt failure. Physical Exam Vital Signs: Temp Pulse Resp BP Pulse Ox 98.2 F 65 18 110/59 L 98 10/06/18 11:13 10/06/18 11:13 10/06/18 11:13 10/06/18 11:13 10/06/18 11:13 Intake & Output 10/05/18 10/06/18 10/07/18 06:59 06:59 06:59 Intake Total 920 890 Output Total 141 9405 Balance -30 -935 Weight 97.2 kg 97.4 kg General appearance: PRESENT: no acute distress, well-developed, well-nourished Head exam: PRESENT: atraumatic, normocephalic Respiratory exam: PRESENT: clear to auscultation tayo. ABSENT: rales, rhonchi, wheezes Cardiovascular exam: PRESENT: RRR. ABSENT: diastolic murmur, rubs, systolic murmur Neurological exam: PRESENT: alert, awake, oriented to person, oriented to place, oriented to time, oriented to situation, CN II-XII grossly intact. ABSENT: motor sensory deficit Psychiatric exam: PRESENT: appropriate affect, normal mood. ABSENT: homicidal ideation, suicidal ideation Results Laboratory Results: 10/06/18 05:29 10/06/18 05:29 10/06/18 10/06/18 05:29 05:29 WBC 4.3 RBC 3.35 L Hgb 11.3 L Hct 33.5 L MCV 100 H MCH 33.7 H MCHC 33.7 RDW 14.4 H Plt Count 129 L Seg Neutrophils % 48.4 Lymphocytes % 32.2 Monocytes % 15.1 H Eosinophils % 3.6 Basophils % 0.7 Absolute Neutrophils 2.1 Absolute Lymphocytes 1.4 Absolute Monocytes 0.6 Absolute Eosinophils 0.2 Absolute Basophils 0.0 Sodium 140.4 Potassium 3.6 Chloride 105 Carbon Dioxide 29 Anion Gap 6 BUN 26 H Creatinine 1.52 H Est GFR ( Amer) 55 L Est GFR (Non-Af Amer) 45 L Glucose 75 Calcium 8.6 Magnesium 1.8 10/04/18 10/04/18 10/04/18 02:18 08:00 08:00 Creatine Kinase 53 L CK-MB (CK-2) 0.72 Troponin I 0.023 0.031 NT-Pro-B Natriuret Pep 632 10/04/18 10/04/18 10/04/18 13:48 13:48 20:12 Creatine Kinase 48 L 49 L CK-MB (CK-2) 0.75 Troponin I 0.019 NT-Pro-B Natriuret Pep 10/04/18 10/05/18 10/06/18 20:12 05:13 05:29 Creatine Kinase CK-MB (CK-2) 0.61 Troponin I 0.019 NT-Pro-B Natriuret Pep 816 1800 H Impressions: Chest X-Ray 10/05/18 07:00 IMPRESSION: Slightly improved right basilar aeration. 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 Anticoagulant therapy for permanect/persistent/paraoxysmal Afib or Aflutter: Yes Follow-up Appointment scheduled within 7 days?: Yes
== END 2018-10-06 11:30 | disposition home or self-care (01) | DRG 291 ==
LOC: ER 02:05 → EH 03:21 → 3S 04:25
PROVIDERS: ADMIT Emergency Medicine; ATTEND Emergency Medicine
DX: I13.0 Hypertensive heart and chronic kidney disease with heart failure and stage 1 through stage 4 chronic kidney disease, or unspecified chronic kidney disease (principal); J96.01 Acute respiratory failure with hypoxia; I50.9 Heart failure, unspecified; N40.1 Benign prostatic hyperplasia with lower urinary tract symptoms; R33.8 Other retention of urine; I25.10 Atherosclerotic heart disease of native coronary artery without angina pectoris; J44.9 Chronic obstructive pulmonary disease, unspecified; K21.9 Gastro-esophageal reflux disease without esophagitis; N18.9 Chronic kidney disease, unspecified; E87.70 Fluid overload, unspecified; D63.1 Anemia in chronic kidney disease; I48.0 Paroxysmal atrial fibrillation; M19.90 Unspecified osteoarthritis, unspecified site; I25.2 Old myocardial infarction; Z79.01 Long term (current) use of anticoagulants; Z95.5 Presence of coronary angioplasty implant and graft; Z79.51 Long term (current) use of inhaled steroids; Z79.899 Other long term (current) drug therapy
CPT/HCPCS: 36415; 36600; 71045; 71046; 80048; 80053; 80061; 82550; 82553; 82803; 83735; 83880; 84439; 84443; 84481; 84484; 85025; 93005; 93010; 93306; 94660; 96374; 99285; J1940; J3490; J7614

== ENCOUNTER → 2018-10-15 | Outpatient (CLI) | payer MEDICARE, OTHER | LOC: OD 08:56 | PROVIDERS: ATTEND Family Medicine Geriatric Medicine | DX: I25.10 Atherosclerotic heart disease of native coronary artery without angina pectoris (principal); E55.9 Vitamin D deficiency, unspecified; Z79.899 Other long term (current) drug therapy | CPT/HCPCS: 36415; 82306; 84443 ==

== ENCOUNTER → 2018-11-19 | Outpatient (CLI) | payer MEDICARE, OTHER | LOC: OD 10:21 | PROVIDERS: ATTEND Family Medicine Geriatric Medicine | DX: R79.89 Other specified abnormal findings of blood chemistry (principal); Z79.899 Other long term (current) drug therapy | CPT/HCPCS: 36415; 84443 ==

== ENCOUNTER → 2019-01-02 | Outpatient (CLI) | payer MEDICARE, OTHER ==
[2019-01-02 14:52] LABS: ANION GAP 10 (5-19); BLOOD UREA NITROGEN 16 mg/dL (7-20); CALCIUM 9.3 mg/dL (8.4-10.2); CARBON DIOXIDE 30 mmol/L (22-30); CHLORIDE 99 mmol/L (98-107); GLUCOSE 136 mg/dL (75-110)
== END ==
LOC: OD 13:05
PROVIDERS: ATTEND Specialist
DX: I48.19 Other persistent atrial fibrillation (principal)
CPT/HCPCS: 36415; 80048

== ENCOUNTER → 2019-03-11 | Outpatient (CLI) | payer MEDICARE, OTHER ==
--- NOTE | 2019-03-11 09:23 | RADIOLOGY REPORT (SQ) ---
EXAM DESCRIPTION: CT ABD/PELVIS WITH IV ONLY COMPLETED DATE/TIME: 03/11/2019 9:05 am REASON FOR STUDY: PROSTATE CA (C61) C61 MALIGNANT NEOPLASM OF PROSTATE COMPARISON: 07/27/2017 TECHNIQUE: CT scan of the abdomen and pelvis performed using helical scanning technique with dynamic intravenous contrast injection. No oral contrast. Images reviewed with lung, soft tissue, and bone windows. Reconstructed coronal and sagittal MPR images reviewed. Delayed images for evaluation of the urinary system also acquired. All images stored on PACS. All CT scanners at this facility use dose modulation, iterative reconstruction, and/or weight based d osing when appropriate to reduce radiation dose to as low as reasonably achievable (ALARA). [facility]: Dose Right [facility]: CareDose [facility]: Dose Right [facility]: Teradose 4D [facility]: Groupspeak CONTRAST TYPE AND DOSE: contrast/concentration: Isovue 350.00 mg/ml; Total Contrast Delivered: 100.0 ml; Total Saline Delivered: 72.0 ml RENAL FUNCTION: Creatinine 1.5 RADIATION DOSE: . LIMITATIONS: None. FINDINGS: LOWER CHEST: See separate report of the CT of the chest. LIVER: Normal size. No masses. No dilated ducts. SPLEEN: Normal size. No focal lesions. PANCREAS: No masses. No significant calcifications. No adjacent inflammation or peripancreatic fluid collections. Pancreatic duct not dilated. GALLBLADDER: No identified stones by CT criteria. No inflammatory changes to suggest cholecystitis. ADRENAL GLANDS: No significant masses or asymmetry. RIGHT KIDNEY AND URETER: No solid masses. No significant calcifications. No hydronephrosis or hyd roureter. LEFT KIDNEY AND URETER: No solid masses. 14 mm lower pole cyst. No significant calcifications. N o hydronephrosis or hydroureter. AORTA AND VESSELS: Aortoiliac atherosclerosis without aneurysm. No dissection. Renal arteries, SMA, c eliac without stenosis. RETROPERITONEUM: No retroperitoneal adenopathy, hemorrhage or masses. BOWEL AND PERITONEAL CAVITY: Scattered colonic diverticula. No focal bowel wall thickening. No evid ence of intestinal obstruction. APPENDIX: Normal. PELVIS: No mass. No free fluid. Normal bladder. No lymphadenopathy. ABDOMINAL WALL: No masses. No hernias. BONES: No acute bony abnormality. Description os he would. OTHER: No other significant finding. IMPRESSION: 1. No evidence of intra-abdominal/pelvic metastatic disease. 2. No evidence of acute intra-abdominal/pelvic process. 3. Colonic diverticulosis. Additional chronic findings as above. 4. Please see same-day chest CT for findings above the diaphragm. TECHNICAL DOCUMENTATION: JOB ID: [id number] Quality ID # 436: Final reports with documentation of one or more dose reduction techniques (e.g., Au tomated exposure control, adjustment of the mA and/or kV according to patient size, use of iterative reconstruction technique) 2010 [employer]- All Rights Reserved Reading location - IP/workstation name: [email or web address]
--- NOTE | 2019-03-11 09:27 | RADIOLOGY REPORT (SQ) ---
EXAM DESCRIPTION: CT CHEST WITH COMPLETED DATE/TIME: 03/11/2019 9:05 am REASON FOR STUDY: PROSTATE CA (C61 C61 MALIGNANT NEOPLASM OF PROSTATE COMPARISON: 07/27/2017 TECHNIQUE: CT scan of the chest performed using helical scanning technique with dynamic intravenous contrast injection. Images reviewed with lung, soft tissue and bone windows. Reconstructed coronal and sagittal MPR and MIP images reviewed. All images stored on PACS. All CT scanners at this facility use dose modulation, iterative reconstruction, and/or weight based d osing when appropriate to reduce radiation dose to as low as reasonably achievable (ALARA). [facility]: Dose Right [facility]: CareDose [facility]: Dose Right [facility]: Teradose 4D [facility]: BoatSetter CONTRAST TYPE AND DOSE: See abdomen RENAL FUNCTION: See abdomen RADIATION DOSE: CT Rad equipment meets quality standard of care and radiation dose reduction techniq ues were employed. CTDIvol: 11.0 - 15.1 mGy. DLP: 2166 mGy-cm. . LIMITATIONS: None. FINDINGS: LUNGS AND PLEURA: No opacities, nodules, masses. No pneumothorax. No effusions. HILAR AND MEDIASTINAL STRUCTURES: No identified masses or abnormal nodes. HEART AND VASCULAR STRUCTURES: Cardiomegaly. Coronary atherosclerosis with evidence of prior CABG. No pericardial effusion. No discrete aneurysm. HARDWARE: CABG hardware. UPPER ABDOMEN: See separate report of the CT of the abdomen. THYROID AND OTHER SOFT TISSUES: Partially evaluated thyroid with asymmetrically enlarged right lobe. No discrete nodule. BONES: No acute bony abnormality. No suspicious lytic or blastic osseous lesions. Sternotomy change s. OTHER: No other significant finding. IMPRESSION: 1. No evidence of intrathoracic metastatic disease. 2. No evidence of acute intrathoracic process. TECHNICAL DOCUMENTATION: JOB ID: [id number] Quality ID # [id number]: Final reports with documentation of one or more dose reduction techniques (e.g., Au tomated exposure control, adjustment of the mA and/or kV according to patient size, use of iterative reconstruction technique) 2010 [employer]- All Rights Reserved Reading location - IP/workstation name: [email or web address]
--- NOTE | 2019-03-11 12:45 | RADIOLOGY REPORT (SQ) ---
EXAM DESCRIPTION: NM WHOLE BODY BONE SCAN COMPLETED DATE/TIME: 03/11/2019 11:23 am REASON FOR STUDY: PROSTATE CA (C61 C61 MALIGNANT NEOPLASM OF PROSTATE COMPARISON: Same day CT RADIONUCLIDE AND DOSE: 21.1 millicuries Tc99m HDP. The route of agent administration: Intravenous. ADDITIONAL DRUGS AND DOSES: None. TECHNIQUE: Routine delayed images at 3 hour post radionuclide injection acquired of the bony skeleto n including anterior and posterior whole-body projections and additional focused images as needed. LIMITATIONS: None. FINDINGS: BONES: Patchy areas of radiotracer uptake at the bilateral shoulders, knees and feet most compatible with degenerative change. Subtle linear areas of increased uptake within the posterior le ft 8 -10th ribs, likely related to remote trauma. Otherwise, normal visualization without areas of p hotopenia or increased bony uptake of radiopharmaceutical. KIDNEYS: Symmetric excretion without obstruction. OTHER: No other significant finding. IMPRESSION: No suspicious uptake to suggest osseous metastatic disease. COMMENT: Quality measure 147: Current bone scan is compared with any available plain radiographs, p rior bone scans, and CT/MRI. TECHNICAL DOCUMENTATION: JOB ID: [id number] [employer]- All Rights Reserved Reading location - IP/workstation name: [email or web address]
== END ==
LOC: RAD 07:50
PROVIDERS: ATTEND Urology
DX: C61 Malignant neoplasm of prostate (principal)
CPT/HCPCS: 82565; 78306; 71260; 74177; A9561; Q9969

== ENCOUNTER → 2019-03-14 | Outpatient (CLI) | payer MEDICARE, OTHER ==
[2019-03-14 08:02] LABS: ABSOLUTE EOSINOPHILS # (AUTO) 0.1 10^3/uL (0.0-0.6); ABSOLUTE LYMPHOCYTES (AUTO) 1.3 10^3/uL (0.5-4.7); ABSOLUTE MONOCYTES (AUTO) 0.6 10^3/uL (0.1-1.4); ABSOLUTE NEUT (AUTO) 2.7 10^3/uL (1.7-8.2); BASOPHILS % (AUTO) 0.7 % (0-2); EOSINOPHILS % (AUTO) 2.2 % (0-6); HEMATOCRIT 38.8 % (37.9-51.0); HEMOGLOBIN 13.4 g/dL (13.5-17.0); LYMPHOCYTES % (AUTO) 28.2 % (13-45); MEAN CORPUSCULAR HGB CONC 34.5 g/dL (32.0-36.0); MEAN CORPUSCULAR VOLUME 98 fl (80-97); MONOCYTES % (AUTO) 12.1 % (3-13); PLATELET COUNT 122 10^3/uL (150-450); RED BLOOD COUNT 3.94 10^6/uL (4.35-5.55); RED CELL DISTRIBUTION WIDTH 15.1 % (11.5-14.0); SEGMENTED NEUTROPHILS % (AUTO) 56.8 % (42-78); TOTAL CELLS COUNTED % (AUTO) 100 %; WHITE BLOOD COUNT 4.8 10^3/uL (4.0-10.5)
[2019-03-14 08:15] LABS: ALKALINE PHOSPHATASE 74 U/L (38-126); ANION GAP 10 (5-19); ASPARTATE AMINO TRANSFERASE 35 U/L (17-59); BILIRUBIN,DIRECT 0.3 mg/dL (0.0-0.4); BILIRUBIN,TOTAL 0.4 mg/dL (0.2-1.3); BLOOD UREA NITROGEN 18 mg/dL (7-20); CALCIUM 9.6 mg/dL (8.4-10.2); CARBON DIOXIDE 29 mmol/L (22-30); CHLORIDE 102 mmol/L (98-107); CHOLESTEROL 177.58 mg/dL (0-200); GLUCOSE 93 mg/dL (75-110); POTASSIUM 4.5 mmol/L (3.6-5.0); TOTAL PROTEIN 7.3 g/dL (6.3-8.2); TRIGLYCERIDES 115 mg/dL (<150); URIC ACID 5.2 mg/dL (3.5-8.5)
[2019-03-14 08:26] LABS: DIRECT LDL 102 mg/dL (<100)
== END ==
LOC: OD 07:11
PROVIDERS: ATTEND Family Medicine Geriatric Medicine
DX: M10.9 Gout, unspecified (principal); E78.5 Hyperlipidemia, unspecified; I48.91 Unspecified atrial fibrillation; I50.22 Chronic systolic (congestive) heart failure; C61 Malignant neoplasm of prostate; Z79.899 Other long term (current) drug therapy
CPT/HCPCS: 36415; 80053; 80061; 84550; 85025

== ENCOUNTER → 2019-06-16 | Outpatient (CLI) | payer MEDICARE, OTHER ==
[2019-06-16 08:26] LABS: ABSOLUTE EOSINOPHILS # (AUTO) 0.1 10^3/uL (0.0-0.6); ABSOLUTE LYMPHOCYTES (AUTO) 1.3 10^3/uL (0.5-4.7); ABSOLUTE MONOCYTES (AUTO) 0.5 10^3/uL (0.1-1.4); ABSOLUTE NEUT (AUTO) 2.8 10^3/uL (1.7-8.2); BASOPHILS % (AUTO) 0.4 % (0-2); EOSINOPHILS % (AUTO) 2.7 % (0-6); HEMATOCRIT 37.9 % (37.9-51.0); HEMOGLOBIN 13.1 g/dL (13.5-17.0); LYMPHOCYTES % (AUTO) 27.6 % (13-45); MEAN CORPUSCULAR HEMOGLOBIN 34.4 pg (27.0-33.4); MEAN CORPUSCULAR HGB CONC 34.6 g/dL (32.0-36.0); MEAN CORPUSCULAR VOLUME 99 fl (80-97); MONOCYTES % (AUTO) 10.2 % (3-13); PLATELET COUNT 115 10^3/uL (150-450); RED BLOOD COUNT 3.82 10^6/uL (4.35-5.55); RED CELL DISTRIBUTION WIDTH 14.6 % (11.5-14.0); SEGMENTED NEUTROPHILS % (AUTO) 59.1 % (42-78); TOTAL CELLS COUNTED % (AUTO) 100 %; WHITE BLOOD COUNT 4.7 10^3/uL (4.0-10.5)
[2019-06-16 08:37] LABS: CHOLESTEROL 151.89 mg/dL (0-200); TRIGLYCERIDES 114 mg/dL (<150)
[2019-06-16 08:48] LABS: DIRECT LDL 71 mg/dL (<100)
== END ==
LOC: OD 07:11
PROVIDERS: ATTEND Family Medicine Geriatric Medicine
DX: D64.9 Anemia, unspecified (principal); E78.5 Hyperlipidemia, unspecified; E55.9 Vitamin D deficiency, unspecified; Z79.899 Other long term (current) drug therapy
CPT/HCPCS: 36415; 80061; 82306; 84460; 85025

== ENCOUNTER → 2019-06-30 | Outpatient (CLI) | payer MEDICARE, OTHER ==
--- NOTE | 2019-06-30 15:15 | RADIOLOGY REPORT (SQ) ---
EXAM DESCRIPTION: CHEST PA/LATERAL IMAGES COMPLETED DATE/TIME: 06/30/2019 2:54 pm REASON FOR STUDY: CHRONIC OBSTRUCTIVE PULMONARY DISEASE, UNSPECIFIED COMPARISON: 10/05/2018 EXAM PARAMETERS: NUMBER OF VIEWS: two views TECHNIQUE: Digital Frontal and Lateral radiographic views of the chest acquired. RADIATION DOSE: NA LIMITATIONS: none FINDINGS: LUNGS AND PLEURA: No opacities, masses or pneumothorax. No pleural effusion. Mild increas ed AP diameter and flattening of the hemidiaphragms. MEDIASTINUM AND HILAR STRUCTURES: No masses or contour abnormalities. HEART AND VASCULAR STRUCTURES: Normal heart size. Aortic atherosclerosis. Prior sternotomy and CABG . BONES: No acute findings. HARDWARE: CABG hardware. OTHER: No other significant finding. IMPRESSION: No evidence of acute cardiopulmonary process. Prior CABG. TECHNICAL DOCUMENTATION: JOB ID: [id number] 2010 [employer]- All Rights Reserved Reading location - IP/workstation name: [email or web address]
== END ==
LOC: OD 14:41
PROVIDERS: ATTEND Family Medicine Geriatric Medicine
DX: J44.9 Chronic obstructive pulmonary disease, unspecified (principal)
CPT/HCPCS: 71046

== ENCOUNTER → 2019-10-15 | Outpatient (CLI) | payer MEDICARE, OTHER ==
--- NOTE | 2019-10-15 12:58 | RADIOLOGY REPORT (SQ) ---
EXAM DESCRIPTION: KNEE LEFT 4 VIEWS IMAGES COMPLETED DATE/TIME: 10/15/2019 12:11 pm REASON FOR STUDY: LEFT KNEE PAIN M25.569 PAIN IN UNSPECIFIED KNEE COMPARISON: None. NUMBER OF VIEWS: Four views. TECHNIQUE: AP, lateral, and both oblique radiographic images acquired of the left knee. LIMITATIONS: None. FINDINGS: MINERALIZATION: Normal. BONES: No acute fracture or dislocation. No worrisome bone lesions. JOINT: There is mild narrowing of the medial compartment with mild subchondral sclerosis. No margina l osteophytes are present. No joint effusion. SOFT TISSUES: No soft tissue swelling. No radio-opaque foreign body. OTHER: No other significant finding. IMPRESSION: Mild medial compartment degenerative joint changes. TECHNICAL DOCUMENTATION: JOB ID: [id number] 2010 [employer]- All Rights Reserved Reading location - IP/workstation name: [email or web address]
== END ==
LOC: OD 11:42
PROVIDERS: ATTEND Family Medicine Geriatric Medicine
DX: M17.12 Unilateral primary osteoarthritis, left knee (principal); M25.562 Pain in left knee

== ENCOUNTER → 2019-12-15 | Outpatient (CLI) | payer MEDICARE, OTHER ==
--- NOTE | 2019-12-15 12:29 | RADIOLOGY REPORT (SQ) ---
EXAM DESCRIPTION: LUMBAR SPINE COMPLETE IMAGES COMPLETED DATE/TIME: 12/15/2019 11:56 am REASON FOR STUDY: RADICULOPATHY, LUMBAR REGION M54.16 RADICULOPATHY, LUMBAR REGION COMPARISON: None. NUMBER OF VIEWS: Five views including obliques. TECHNIQUE: AP, lateral, oblique, and sacral radiographic images acquired of the lumbar spine. LIMITATIONS: None. FINDINGS: MINERALIZATION: Normal. SEGMENTATION: Normal. No transitional anatomy. ALIGNMENT: Normal. VERTEBRAE: Maintained height. No fracture or worrisome bone lesion. DISCS: There is mild narrowing of the disc spaces at L3-4 and L4-5. Prominent marginal osteophytes a re present multiple levels. POSTERIOR ELEMENTS: Pedicles and facets are intact. No pars defect or posterior arch defects. HARDWARE: None in the spine. PARASPINAL SOFT TISSUES: Normal. PELVIS: Intact as visualized. No fractures or worrisome bone lesions. SI joints intact. OTHER: No other significant finding. IMPRESSION: Multilevel degenerative disc disease and spondylosis. No acute finding. TECHNICAL DOCUMENTATION: JOB ID: [id number] 2010 [employer]- All Rights Reserved Reading location - IP/workstation name: [email or web address]
--- NOTE | 2019-12-15 12:30 | RADIOLOGY REPORT (SQ) ---
EXAM DESCRIPTION: SACRUM AND COCCYX IMAGES COMPLETED DATE/TIME: 12/15/2019 11:56 am REASON FOR STUDY: RADICULOPATHY, LUMBAR REGION M54.16 RADICULOPATHY, LUMBAR REGION COMPARISON: 07/01/2018 NUMBER OF VIEWS: Three views. TECHNIQUE: AP, lateral, and tilt views of the sacrum and coccyx. LIMITATIONS: None. FINDINGS: MINERALIZATION: Normal. BONES: No acute fracture or dislocation. No worrisome bone lesions. SOFT TISSUES: No soft tissue swelling. No foreign body. OTHER: No other significant finding. IMPRESSION: NEGATIVE STUDY OF THE SACRUM AND COCCYX. TECHNICAL DOCUMENTATION: JOB ID: [id number] 2010 [employer]- All Rights Reserved Reading location - IP/workstation name: [email or web address]
== END ==
LOC: RAD 11:23
PROVIDERS: ATTEND Family Medicine Geriatric Medicine
DX: M54.16 Radiculopathy, lumbar region (principal)
CPT/HCPCS: 72110; 72220

== ENCOUNTER 2019-12-29 18:45 | Emergency (ER) | payer MEDICARE, OTHER ==
--- NOTE | 2019-12-29 19:41 | ER Document Report ---
ED Medical Screen (RME) - General Chief Complaint: Rectal Bleeding Stated Complaint: RECTAL BLEEDING Time Seen by Provider: 12/29/19 19:36 Primary Care Provider: ANDREA DUKE MD [Primary Care Provider] - Follow up as needed Mode of Arrival: Wheelchair Information source: Patient Notes: 74-year-old male presented to ED for complaint of rectal bleeding since noon t franck. He states he is due for colonoscopy. He states he had polyps 3 years ago when he had his colonoscopy. He does have a history of prostate cancer but his PSA is down 0.05. He also has COPD and is on Eliquis. He does smoke 1/2 pack a day does not drink or do any drugs. He is alert and oriented stable at this time. Will get blood urine type and screen and have him seen by another provider. I have greeted and performed a rapid initial assessment of this patient. A comprehensive ED assessment and evaluation of the patient, analysis of test results and completion of medical decision making process will be conducted by an additional ED providers. TRAVEL OUTSIDE OF THE [place] IN LAST 30 DAYS: No - Related Data Allergies/Adverse Reactions: No Known Allergies Allergy (Verified 05/19/16 06:59) Home Medications: Allopurinol, apixaban, COQ10 SG, Mucinex, Fish oil, Lasix, Cozaar, Magnesium, Lopressor, Theragran, Nitro, Ranexa, Crestor, Flomax, b12, Flovent, proair, Meloxicam, Duoneb, Anord Ellipta Past Medical History - Social History Frequency of alcohol use: None Drug Abuse: None Family history: Reviewed & Not Pertinent - Past Medical History Cardiac Medical History: Reports: Hx Coronary Artery Disease, Hx Heart Attack - 1997 AND minor [place] in 2012, quad bypass, on plavix, Hx Hypercholesterolemia, Hx Hypertension Denies: Hx Atrial Fibrillation, Hx Congestive Heart Failure, Hx DVT, Hx Peripheral Vascular Disease, Hx Pulmonary Embolism Pulmonary Medical History: Reports: Hx Asthma, Hx COPD - stopped smoking several months ago, smoked for over 50 years Denies: Hx Bronchitis, Hx Pneumonia, Hx Respiratory Failure Neurological Medical History: Denies: Hx Cerebrovascular Accident, Hx Seizures Endocrine Medical History: Denies: Hx Diabetes Mellitus Type 1, Hx Diabetes Mellitus Type 2, Hx Hyperthyroidism, Hx Hypothyroidism Renal/ Medical History: Denies: Hx Kidney Stones, Hx Peritoneal Dialysis GI Medical History: Reports: Hx Gastroesophageal Reflux Disease, Hx Ulcer - in past. Denies: Hx Cirrhosis, Hx Crohn's Disease, Hx Hepatitis, Hx Hiatal Hernia, Hx Ulcerative Colitis Musculoskeltal Medical History: Reports Hx Arthritis, Reports Hx Gout Skin Medical History: Denies Hx Eczema, Denies Hx Psoriasis Infectious Medical History: Denies: Hx Hepatitis Past Surgical History: Reports: Hx Cardiac Catheterization, Hx Cardiac Surgery - CABG X4 in 1997, Hx Coronary Artery Bypass Graft, Hx Herniorrhaphy, Hx Open Heart Surgery - 1997 NO PX NOW, CATH NO DEFINITIVE RESULTS, Hx Tonsillectomy, Other - Bilateral cataract surgery, bilateral eyelid surgery for dermatochalasis. Denies: Hx Pacemaker - Immunizations Hx Diphtheria, Pertussis, Tetanus Vaccination: No Physical Exam - Vital signs Vitals: Temp Pulse Resp BP Pulse Ox 97.5 F 74 16 153/82 H 95 12/29/19 19:01 12/29/19 19:01 12/29/19 19:01 12/29/19 19:01 12/29/19 19:01 Course - Vital Signs Vital signs: Temp Pulse Resp BP Pulse Ox 97.5 F 74 16 153/82 H 95 12/29/19 19:01 12/29/19 19:01 12/29/19 19:01 12/29/19 19:01 12/29/19 19:01 Doctor's Discharge - Discharge Referrals: ANDREA DUKE MD [Primary Care Provider] - Follow up as needed
[2019-12-29 20:11] LABS: ABSOLUTE EOSINOPHILS # (AUTO) 0.1 10^3/uL (0.0-0.6); ABSOLUTE LYMPHOCYTES (AUTO) 1.5 10^3/uL (0.5-4.7); ABSOLUTE MONOCYTES (AUTO) 0.7 10^3/uL (0.1-1.4); BASOPHILS % (AUTO) 0.3 % (0-2); EOSINOPHILS % (AUTO) 1.8 % (0-6); HEMATOCRIT 41.5 % (37.9-51.0); HEMOGLOBIN 14.6 g/dL (13.5-17.0); LYMPHOCYTES % (AUTO) 28.1 % (13-45); MEAN CORPUSCULAR HEMOGLOBIN 35.1 pg (27.0-33.4); MEAN CORPUSCULAR HGB CONC 35.2 g/dL (32.0-36.0); MEAN CORPUSCULAR VOLUME 100 fl (80-97); MONOCYTES % (AUTO) 12.5 % (3-13); PLATELET COUNT 140 10^3/uL (150-450); RED BLOOD COUNT 4.16 10^6/uL (4.35-5.55); RED CELL DISTRIBUTION WIDTH 15.6 % (11.5-14.0); SEGMENTED NEUTROPHILS % (AUTO) 57.3 % (42-78); TOTAL CELLS COUNTED % (AUTO) 100 %; WHITE BLOOD COUNT 5.3 10^3/uL (4.0-10.5)
[2019-12-29 20:14] LABS: APPEARANCE,URINE CLEAR; BILIRUBIN,URINE NEGATIVE (NEGATIVE); COLOR,URINE YELLOW; GLUCOSE, URINE NEGATIVE (NEGATIVE); KETONES,URINE NEGATIVE (NEGATIVE); LEUKOCYTE ESTERASE,URINE NEGATIVE (NEGATIVE); NITRITE,URINE NEGATIVE (NEGATIVE); PROTEIN,URINE NEGATIVE (NEGATIVE); URINE SPECIFIC GRAVITY 1.005; UROBILINOGEN,URINE NEGATIVE mg/dL (<2.0)
[2019-12-29 20:17] LABS: INTERNATIONAL RATION (INR) 1.02; PROTHROMBIN TIME 13.6 SEC (11.4-15.4)
[2019-12-29 20:18] LABS: PARTIAL THROMBOPLASTIN TIME 33.8 SEC (23.5-35.8)
[2019-12-29 20:31] LABS: ALBUMIN 4.3 g/dL (3.5-5.0); ALKALINE PHOSPHATASE 86 U/L (38-126); ANION GAP 9 (5-19); ASPARTATE AMINO TRANSFERASE 35 U/L (17-59); BILIRUBIN,DIRECT 0.3 mg/dL (0.0-0.4); BILIRUBIN,TOTAL 0.5 mg/dL (0.2-1.3); BLOOD UREA NITROGEN 17 mg/dL (7-20); CALCIUM 9.8 mg/dL (8.4-10.2); CARBON DIOXIDE 30 mmol/L (22-30); CHLORIDE 99 mmol/L (98-107); GLUCOSE 87 mg/dL (75-110); POTASSIUM 4.3 mmol/L (3.6-5.0); TOTAL PROTEIN 7.3 g/dL (6.3-8.2)
--- NOTE | 2019-12-29 22:56 | ER Document Report ---
ED General - General Chief Complaint: Rectal Bleeding Stated Complaint: RECTAL BLEEDING Time Seen by Provider: 12/29/19 19:36 Primary Care Provider: ANDREA DUKE MD [Primary Care Provider] - Follow up as needed Mode of Arrival: Wheelchair TRAVEL OUTSIDE OF THE [place] IN LAST 30 DAYS: No - HPI Notes: 74-year-old male presents with rectal bleeding. Patient states that around noon this afternoon he noticed some bright red blood in the toilet bowl after having a bowel movement. He additionally had some blood on the toilet paper and then bleeding stopped. He states that later in the afternoon he was sitting outside on the porch, he felt a bubbling sensation, he went to the restroom and discovered that he had some bleeding again. This happened twice this afternoon. Bleeding has not happened again since the last event. Patient states he has a long history of hemorrhoids, has had to have surgery in the past. He states that initially today he was wiping hard over his known external hemorrhoids. He takes Eliquis. He denies abdominal pain. He states he called his primary care doctor and was advised to come to the emergency department. - Related Data Allergies/Adverse Reactions: No Known Allergies Allergy (Verified 05/19/16 06:59) Home Medications: Allopurinol, apixaban, COQ10 SG, Mucinex, Fish oil, Lasix, Cozaar, Magnesium, Lopressor, Theragran, Nitro, Ranexa, Crestor, Flomax, b12, Flovent, proair, Meloxicam, Duoneb, Anord Ellipta Past Medical History - General Information source: Patient - Social History Smoking Status: Current Every Day Smoker Frequency of alcohol use: None Drug Abuse: None Family History: Malignancy Patient has homicidal ideation: No - Past Medical History Cardiac Medical History: Reports: Hx Coronary Artery Disease, Hx Heart Attack - 1997 AND minor [place] in 2012, quad bypass, on plavix, Hx Hypercholesterolemia, Hx Hypertension Denies: Hx Atrial Fibrillation, Hx Congestive Heart Failure, Hx DVT, Hx Peripheral Vascular Disease, Hx Pulmonary Embolism Pulmonary Medical History: Reports: Hx Asthma, Hx COPD - stopped smoking several months ago, smoked for over 50 years Denies: Hx Bronchitis, Hx Pneumonia, Hx Respiratory Failure Neurological Medical History: Denies: Hx Cerebrovascular Accident, Hx Seizures Endocrine Medical History: Denies: Hx Diabetes Mellitus Type 1, Hx Diabetes Mellitus Type 2, Hx Hyperthyroidism, Hx Hypothyroidism Renal/ Medical History: Denies: Hx Kidney Stones, Hx Peritoneal Dialysis GI Medical History: Reports: Hx Gastroesophageal Reflux Disease, Hx Ulcer - in past. Denies: Hx Cirrhosis, Hx Crohn's Disease, Hx Hepatitis, Hx Hiatal Hernia, Hx Ulcerative Colitis Musculoskeletal Medical History: Reports Hx Arthritis, Reports Hx Gout Skin Medical History: Denies Hx Eczema, Denies Hx Psoriasis Infectious Medical History: Denies: Hx Hepatitis Past Surgical History: Reports: Hx Cardiac Catheterization, Hx Cardiac Surgery - CABG X4 in 1997, Hx Coronary Artery Bypass Graft, Hx Herniorrhaphy, Hx Open Heart Surgery - 1997 NO PX NOW, CATH NO DEFINITIVE RESULTS, Hx Tonsillectomy, Other - Bilateral cataract surgery, bilateral eyelid surgery for dermatochalasis. Denies: Hx Pacemaker - Immunizations Hx Diphtheria, Pertussis, Tetanus Vaccination: No Hx Pneumococcal Vaccination: 12/10/18 Review of Systems - Review of Systems Constitutional: No symptoms reported EENT: No symptoms reported Cardiovascular: No symptoms reported Respiratory: No symptoms reported Gastrointestinal: Rectal bleeding. denies: Abdominal pain Genitourinary: No symptoms reported Male Genitourinary: No symptoms reported Musculoskeletal: No symptoms reported Skin: No symptoms reported Hematologic/Lymphatic: No symptoms reported Neurological/Psychological: No symptoms reported Physical Exam - Vital signs Vitals: Temp Pulse Resp BP Pulse Ox 97.5 F 74 16 153/82 H 95 12/29/19 19:01 12/29/19 19:01 12/29/19 19:01 12/29/19 19:01 12/29/19 19:01 - General General appearance: Appears well, Alert In distress: None - HEENT Head: Normocephalic, Atraumatic Extraocular movements intact: Yes Pupils: PERRL - Respiratory Breath sounds: Normal - Cardiovascular Rhythm: Regular Heart sounds: Normal auscultation - Abdominal Inspection: Obese Tenderness: Nontender - Rectal Hemorrhoids: External - On initial inspection there was no bleeding at outer anus. There are 2 large hemorrhoids. After palpating the hemorrhoid at the 12 o'clock position it began to have a slow trickle of blood. - Extremities General upper extremity: Normal ROM General lower extremity: Normal ROM - Neurological Neuro grossly intact: Yes Cognition: Normal Orientation: AAOx4 - Psychological Associated symptoms: Normal affect - Skin Skin Temperature: Warm Course - Re-evaluation Re-evalutation: 74-year-old male here with bright red blood per rectum after wiping after a bowel movement, known history of hemorrhoids, on Eliquis. On initial examination there was no bleeding, however after some agitation of the external hemorrhoid there began to have a slow trickle of blood. Believe this to be the source of his bleeding. Have ordered gauze soaked in TXA to be applied as would feel that systemic TXA would have risk outweighing benefits. He has no abd ominal pain to suggest diverticulosis/diverticulitis. Blood work was obtained via the triage process, no acute anemia, will repeat hemoglobin. Patient additionally adamant that he will be going home today. 12/30/19 01:12 Hemoglobin without significant drop 12/30/19 01:34 Patient has had no bleeding since application of topical TXA. He is dressed and states he is ready to go home. I advised him to hold his anticoagulant use tomorrow and please call his primary care doctor first in the morning. He was given strict return precautions. He is stable at time of discharge. - Vital Signs Vital signs: Temp Pulse Resp BP Pulse Ox 98.4 F 72 16 146/68 H 98 12/30/19 02:02 12/30/19 02:02 12/30/19 02:02 12/30/19 02:02 12/30/19 02:02 - Laboratory Result Diagrams: 12/30/19 00:23 12/29/19 19:47 Laboratory results interpreted by me: 12/29/19 12/30/19 19:47 00:23 RBC 4.16 L 3.94 L MCV 100 H 99 H MCH 35.1 H 35.1 H RDW 15.6 H 15.6 H Plt Count 140 L 143 L Discharge - Discharge Clinical Impression: Bleeding external hemorrhoids Disposition: HOME, SELF-CARE Additional Instructions: Please hold use of anticoagulant tomorrow. Please call your doctor in the morning. Return to the emergency department for any recurrence of bleeding. Referrals: ANDREA DUKE MD [Primary Care Provider] - Follow up as needed
[2019-12-29] MEDS ORDERED: TRANEXAMIC ACID INJ/PF 1,000 MG/10 ML SDV TOP ONE (23:22)
[2019-12-30 00:42] LABS: HEMATOCRIT 39.2 % (37.9-51.0); HEMOGLOBIN 13.8 g/dL (13.5-17.0); MEAN CORPUSCULAR HEMOGLOBIN 35.1 pg (27.0-33.4); MEAN CORPUSCULAR HGB CONC 35.3 g/dL (32.0-36.0); MEAN CORPUSCULAR VOLUME 99 fl (80-97); PLATELET COUNT 143 10^3/uL (150-450); RED BLOOD COUNT 3.94 10^6/uL (4.35-5.55); RED CELL DISTRIBUTION WIDTH 15.6 % (11.5-14.0); WHITE BLOOD COUNT 5.4 10^3/uL (4.0-10.5)
[2019-12-30 02:03] VITALS: BP 146/68
== END 2019-12-30 02:03 | disposition home or self-care (01) ==
LOC: ER 18:45
DX: K64.4 Residual hemorrhoidal skin tags (principal); K62.5 Hemorrhage of anus and rectum; J44.9 Chronic obstructive pulmonary disease, unspecified; Z79.01 Long term (current) use of anticoagulants; F17.210 Nicotine dependence, cigarettes, uncomplicated; I25.10 Atherosclerotic heart disease of native coronary artery without angina pectoris; I10 Essential (primary) hypertension; Z53.20 Procedure and treatment not carried out because of patient's decision for unspecified reasons; Z79.899 Other long term (current) drug therapy
CPT/HCPCS: 99283; 86900; 86901; 36415; 87086; 86850; 83690; 85025; 85610; 85730; 80053; 81001; J3490

== ENCOUNTER → 2020-01-20 | Outpatient (CLI) | payer MEDICARE, OTHER ==
[2020-01-20 08:22] LABS: ABSOLUTE EOSINOPHILS # (AUTO) 0.1 10^3/uL (0.0-0.6); ABSOLUTE LYMPHOCYTES (AUTO) 1.3 10^3/uL (0.5-4.7); ABSOLUTE MONOCYTES (AUTO) 0.5 10^3/uL (0.1-1.4); ABSOLUTE NEUT (AUTO) 1.8 10^3/uL (1.7-8.2); BASOPHILS % (AUTO) 0.4 % (0-2); EOSINOPHILS % (AUTO) 2.6 % (0-6); HEMATOCRIT 41.4 % (37.9-51.0); HEMOGLOBIN 14.4 g/dL (13.5-17.0); LYMPHOCYTES % (AUTO) 34.9 % (13-45); MEAN CORPUSCULAR HEMOGLOBIN 35.1 pg (27.0-33.4); MEAN CORPUSCULAR HGB CONC 34.8 g/dL (32.0-36.0); MEAN CORPUSCULAR VOLUME 101 fl (80-97); MONOCYTES % (AUTO) 12.5 % (3-13); PLATELET COUNT 119 10^3/uL (150-450); RED CELL DISTRIBUTION WIDTH 14.9 % (11.5-14.0); SEGMENTED NEUTROPHILS % (AUTO) 49.6 % (42-78); TOTAL CELLS COUNTED % (AUTO) 100 %; WHITE BLOOD COUNT 3.7 10^3/uL (4.0-10.5)
[2020-01-20 08:46] LABS: ALBUMIN 4.2 g/dL (3.5-5.0); ALKALINE PHOSPHATASE 98 U/L (38-126); ANION GAP 8 (5-19); ASPARTATE AMINO TRANSFERASE 40 U/L (17-59); BILIRUBIN,DIRECT 0.1 mg/dL (0.0-0.4); BILIRUBIN,TOTAL 0.4 mg/dL (0.2-1.3); BLOOD UREA NITROGEN 16 mg/dL (7-20); CALCIUM 9.5 mg/dL (8.4-10.2); CARBON DIOXIDE 29 mmol/L (22-30); CHLORIDE 103 mmol/L (98-107); CHOLESTEROL 165.06 mg/dL (0-200); GLUCOSE 116 mg/dL (75-110); POTASSIUM 4.3 mmol/L (3.6-5.0); TOTAL PROTEIN 7.1 g/dL (6.3-8.2); TRIGLYCERIDES 159 mg/dL (<150)
[2020-01-20 08:57] LABS: DIRECT LDL 77 mg/dL (<100)
[2020-01-20 08:59] LABS: VLDL CHOLESTEROL 31.8 mg/dL (10-31)
== END ==
LOC: OD 07:28
PROVIDERS: ATTEND Family Medicine Geriatric Medicine
DX: E78.5 Hyperlipidemia, unspecified (principal); I25.10 Atherosclerotic heart disease of native coronary artery without angina pectoris; I50.9 Heart failure, unspecified; D64.9 Anemia, unspecified; Z79.899 Other long term (current) drug therapy
CPT/HCPCS: 36415; 80053; 80061; 83735; 85025

== ENCOUNTER → 2020-02-27 | Outpatient (CLI) | payer MEDICARE, OTHER ==
[2020-02-27 10:31] LABS: ABSOLUTE EOSINOPHILS # (AUTO) 0.2 10^3/uL (0.0-0.6); ABSOLUTE LYMPHOCYTES (AUTO) 1.3 10^3/uL (0.5-4.7); ABSOLUTE MONOCYTES (AUTO) 0.5 10^3/uL (0.1-1.4); ABSOLUTE NEUT (AUTO) 2.4 10^3/uL (1.7-8.2); BASOPHILS % (AUTO) 0.7 % (0-2); EOSINOPHILS % (AUTO) 4.6 % (0-6); HEMATOCRIT 42.5 % (37.9-51.0); HEMOGLOBIN 14.1 g/dL (13.5-17.0); LYMPHOCYTES % (AUTO) 29.2 % (13-45); MEAN CORPUSCULAR HEMOGLOBIN 33.6 pg (27.0-33.4); MEAN CORPUSCULAR HGB CONC 33.2 g/dL (32.0-36.0); MEAN CORPUSCULAR VOLUME 101 fl (80-97); MONOCYTES % (AUTO) 10.3 % (3-13); PLATELET COUNT 120 10^3/uL (150-450); RED CELL DISTRIBUTION WIDTH 14.4 % (11.5-14.0); SEGMENTED NEUTROPHILS % (AUTO) 55.2 % (42-78); TOTAL CELLS COUNTED % (AUTO) 100 %; WHITE BLOOD COUNT 4.4 10^3/uL (4.0-10.5)
[2020-02-27 11:54] LABS: FOLATE 18.9 ng/mL (>2.76)
== END ==
LOC: OD 09:35
PROVIDERS: ATTEND Family Medicine Geriatric Medicine
DX: E16.2 Hypoglycemia, unspecified (principal); R79.89 Other specified abnormal findings of blood chemistry; R71.8 Other abnormality of red blood cells; Z79.899 Other long term (current) drug therapy
CPT/HCPCS: 36415; 82607; 82746; 82947; 82950; 83036; 85025